=== PATIENT | male | born 1940 ===

== ENCOUNTER 2019-09-05 10:38 | Inpatient (IN) | payer MEDICARE ==
[2019-09-05] MEDS ORDERED: oxyCODONE/Acetamin 5/325 MG* TAB PO PRN (14:48)
[2019-09-05] MEDS ORDERED: Morphine INJ* 2 MG/ML 1 ML SYRINGE (TWO MG - NEW SYRINGE VERSION) IV PRN (14:48)
[2019-09-05] MEDS ORDERED: Vancomycin(*) 1,000 MG in NS 0.9% 250 ML* 250 ML IVPB SCH (15:00)
[2019-09-05] MEDS ORDERED: Vancomycin per Pharmacy* NOTE FOLLOW UP SCH (15:00)
[2019-09-05] MEDS ORDERED: Zosyn per Pharmacy* NOTE FOLLOW UP SCH (15:00)
[2019-09-05 15:41] LABS: Hematocrit 32 % (42-52); Hemoglobin 11.3 g/dL (14.0-18.0); Mean Corpuscular HGB Conc 35 g/dL (31-36); Mean Corpuscular Hemoglobin 34 pg (27-31); Mean Corpuscular Volume 97 fL (80-94); Mean Platelet Volume 8.3 fL (7.4-10.4); Platelet Count 145 10^3/uL (150-450); Red Blood Count 3.31 10^6 /uL (4.18-5.48); Red Cell Distribution Width 15 % (10-15)
[2019-09-05 15:58] LABS: ABS Lymphocytes 0.2 10^3/ul (1.0-4.8); ABS Monocytes 0.5 10^3/ul (0-0.8); ABS Neutrophils 12.2 10^3/ul (1.5-7.7); Eosinophil % 0.1 %; Lymphocyte % 1.6 %
[2019-09-05] MEDS ORDERED: Piperacillin/Tazobac ADVAN(*) 3.375 GM in NS 0.9% 100 ML* 100 ML IVPB ONE (16:00)
--- NOTE | 2019-09-05 16:06 | CONSULT ---
<Gino Cohen - Last Filed: 09/05/19 15:46> Consult Consult: Patient Name: Niraj Hwang : 1940 Provider: Dr. Braden Chief Complaint: Right leg HPI: The pt is a 78 y/o male who presents today as a transfer from [facility]. The pt states that about 2 weeks ago he developed a cut in the medial aspect of his distal lower leg. He states that on Sunday he started to develop severe pain the lower leg and calf. He had fevers and chills that night. He went to the hospital on Sunday morning and was admitted. He had a CT done on 09/03/2019 which showed no abnormal fluid collection. He did have blood cultures which showed strep pyogenes. He has been on chrnoic steroids x 2 years but had stopped about a week ago. He admits to having severe pain with movement. He is unable to ambulate on the leg at this time due to pain. He did have fevers and chills. PMH: 1. HTN 2. PMR 3. Hx of prostate cancer Allergies Allergy/AdvReac Type Severity Reaction Status Date / Time No Known Allergies Allergy Verified 09/05/19 15:11 Acetaminophen (Tylenol Tab*) 650 mg PO Q4H PRN PRN Reason: PAIN-MILD/TEMP >/= 100.4 Heparin Sodium (Porcine) (Heparin Vial(*)) 5,000 units SUBCUT Q8HR WAGNER Piperacillin Sod/Tazobactam (Sod 3.375 gm/ Sodium Chloride) 100 mls @ 200 mls/ hr IVPB ONCE ONE Stop: 09/05/19 16:29 Vancomycin HCl 500 mg/ Sodium (Chloride) 250 mls @ 166.667 mls/hr IVPB ONCE ONE Stop: 09/05/19 22:29 Vancomycin HCl 1,000 mg/ (Sodium Chloride) 250 mls @ 166.667 mls/hr IV Q12H WAGNER Magnesium Oxide (Magox 400 Tab*) 800 mg PO DAILY WAGNER Metoprolol Succinate (Toprol Xl Tab*) 25 mg PO BID WAGNER Morphine Sulfate (Morphine Inj (Syringe))*) 2 mg IV Q4H PRN PRN Reason: PAIN - SEVERE Oxycodone/Acetaminophen (Percocet 5/325 Tab*) 1 tab PO Q4H PRN PRN Reason: PAIN - MODERATE Pharmacy Consult (Vancomycin Per Pharmacy*) 1 note FOLLOW UP .VANC PER PHARMACY [facility]; Protocol Pharmacy Consult (Zosyn Per Pharmacy*) 1 note FOLLOW UP .ZOSYN PER PHARMACY [facility] Pharmacy Profile Note (Vancomycin Trough Check) 1 note FOLLOW UP 829 ONE Stop: 09/07/19 08:31 PSH: Right total knee arthroplsty Left total knee arthroplasty Left shoulder RCR Prostate removal. SOCIAL HISTORY: Lives with . Works as a contractor. He admits to drinking 3 , 12 oz beers per night. Denies smoking or illicit drug use. FAMILY: Non contributory ROS: General: Admits to fevers, chills. Denies night sweats. No known anesthesia problems. HEENT: denies BRIDGES, lightheadedness or syncopal episodes Cardiothoracic: Denies chest pain, heart palpitations Pulmonary: Denies SOB with exertion, chronic cough, COPD or asthma GI: Admits to nausea. denies V/D/C or GERD : Negative for nocturia, urinary frequency, urinary urgency Musculoskeletal: negative for chronic or intermittent back pain or fractures Neuro: Denies paresthesias, numbness PHYSICAL EXAM: Vital Signs Temp 98 F 09/05/19 14:06 Pulse 93 09/05/19 14:06 Resp 18 09/05/19 14:46 BP 147/80 09/05/19 14:06 Pulse Ox 95 09/05/19 14:06 Intake & Output 09/04/19 09/05/19 09/05/19 18:59 06:59 18:59 Intake Total 0 Output Total 0 Balance 0 Weight 194 lb Intake: Oral 0 Output: Urine 0 Other: # Bowel Movements 0 General: Alert & oriented, year old in no acute distress. Appropriate mood and affect HEENT: Normocephalic, atraumatic, hearing and vision grossly intact Cardio: regular rate and rhythm, S1 S2, no murmurs appreciated, no edema Pulmonary: Lungs clear to auscultation bilaterally, no wheezes, rales or rhonchi Musculoskeletal/Neurologic: Inspection of the RLE reveals severe raised erythema present with purple bullae near the ankle and mid calf. The pt has erythema that is present medial, posterior and extending laterally. The erythema also extends to just below the knee and down into the ankle. There is a small pair of wounds present on the medial distal calf that have serous drainage present. He has severe TTP of the calf medial, lateral and posterior. He jumps in the bed to slight palpation. he cam move his ankle and knee without pain. There is a 2+ DP pulse present. IMPRESSION: Severe cellulitis of the right lower extremity PLAN: STAT MRI of the right calf and ankle to evaluate further Blood cultures obtained Dr. Braden to assess once returned from the MRI NPO at this time Hospitalists starting IV abx at this point <Kev Braden - Last Filed: 09/05/19 19:02> Consult Consult: S: Abrasion x 3 weeks on right lower leg anteriorly treated with Neosporin. Developed severe pain on the evening of 09/02/19. Admitted to [place] 09/03/19. Bacteremic with Strep Pyogenes with first blood cultures. Started on Clinda. Subsequent blood cultures were negative. Initially lactate was elevated and hypotensive such that he was diagnosed as septic and required bolus of IVF. His pain improved from until today, Sunday. Blood cultures negative. But the swelling and erythema in the right lower leg increased which caused concern. Abx were changed from Clindamycin to Vancomycin and Zosyn. Initially , medical team at [place] was concerned about compartment syndrome. He was seen briefly by Dr. Guadalupe at [place]. Transfer to [facility] today was performed, admitted to Hospitalist. History bilateral TKAs, chornic prednisone, spinal stenosis, PMR. O: Non-toxic appearing LLE: - No clear pain with PROM/AROM knee. Pain with repositioning lower leg and with palpation lower leg. - Swelling, erythema lower leg. Incipient bullae posteriorly. Anteriorly, 2/ 3 from proximal to distal there are 2 skin openings with some serous drainage. - No pain with AROM/PROM toes. Mild pain with AROM/PROM ankle. - Sensation fully intact foot. DP pulse intact but weak to touch. Selected Entries 09/05/19 14:06 Temperature 98 F Pulse Rate 93 Respiratory 20 Rate Blood Pressure 147/80 (mmHg) O2 Sat by Pulse 95 Oximetry Laboratory Tests 09/05/19 09/05/19 15:23 15:23 WBC 13.0 H Neut % (Auto) 94.2 ESR Pending C-Reactive Protein 367.03 H - CT at [place] showed no air lower leg, no clear fluid collection - MRI at [facility] today of lower leg and ankle show no fluid collection, no air. There is much cellulitis of ankle and lower leg and some myositis in the lower leg. A: 1. Right lower leg severe cellulitis, bullae, myositis with Strep Epi 2. No compartment syndrome by exam. 3. Formerly septic and bacteremic on 09/03/19, though not currently. 4. No evidence of necrotizing fasciitis (no advancing proximal of the affected area, no air on imaging, non-toxic appearing, afebrile) P: 1. Continue broad spectrum abx (Vanc Zosyn) 2. Non-adherent dressing followed by Kb LENTZ 3. Xray lower leg to evaluate for air now 4. Can eat now. NPO after midnight. No clear indication for surgery at this time. 5. Ortho will follow exam and serial inflammatory labs. 6. ID consult will be performed on 09/08/19. Agree with repeat blood cultures.
[2019-09-05 16:10] LABS: BUN/Creatinine Ratio 21.5 (8-20); Calcium 7.8 mg/dL (8.6-10.3); EGFR African American 114.5 (>60); EGFR Non-African American 94.6 (>60); Potassium 3.6 mmol/L (3.5-5.0)
--- NOTE | 2019-09-05 16:34 | HP ---
CC: Dr. Kev Sheth; Dr. Guadalupe; Dr. Younger * HISTORY AND PHYSICAL: DATE OF ADMISSION: 09/05/19 Date of admission to our facility was 09/05/19, and on the same day, the patient was transferred to our hospital from [place] [facility]. PRIMARY CARE PROVIDER: Dr. Kev Sheth. CHIEF COMPLAINT: Right leg edema, possibility of abscess, possibility of compartment syndrome. HISTORY OF PRESENT ILLNESS: Niraj Davis is a 78-year-old male with history of polymyalgia rheumatica for which he was on chronic prednisone, which he just stopped a week ago, who noted right leg laceration which was small and he was treating it with Neosporin for approximately 4 days. He stated that he does not remember when he got the laceration, but he started treating it approximately 4 days prior to his arrival to [facility]. When he arrived to [facility] on 09/03/19, he had fever, chills, hypotension that resolved after intravenous fluid boluses. He also had an episode of nausea and vomiting x1. He was noted to have yellow drainage from the right leg wound. He was started on clindamycin intravenously. Ever since the admission, he continued to complain of severe pain. He stated that whenever he tries to move his leg has shooting pain, feels like a gunshot to his leg. He also had elevated lactic acid of 3.5 at admission that resolved. During his hospitalization at [facility], he was noted to have Strep pyogenes group A bacteremia and his antibiotics were broadened to vancomycin and Zosyn on the day of admission to our facility and started at [place]. He was noted to have marked leg edema on 09/05/19. The day before, he had Dopplers of right lower extremity which showed "superficial vein thrombosis." Unfortunately, it was not mentioned which vein. He also had a CT of the right leg that showed cellulitis and edema, but no other abnormalities. The provider at [facility] was concerned for possibility of compartment syndrome. Dr. Guadalupe from Orthopedic Surgery curbsided the patient and evaluated him briefly at [place]. It was noted that the patient likely does not have compartment syndrome, but he needs to be transferred and evaluated for an abscess. I discussed the case with Dr. Younger. It is going to be either Dr. Younger or Dr. Guadalupe who will see the patient today in orthopedic service consult. The patient is also going to undergo a CT of the right lower extremity and he is being admitted to our hospital. PAST MEDICAL HISTORY: 1. History of polymyalgia rheumatica, on steroids that were stopped by the patient alone a week prior to the patient's admission. The patient stated that he decided to do it since he noted that long-term steroids have a lot of side effects. He had been taking steroids for approximately 2 years up until that point. 2. History of spinal stenosis. PAST SURGICAL HISTORY: 1. History of left rotator cuff repair. 2. Bilateral total knee replacement surgeries in the past. 3. Prostatectomy for prostate cancer and vasectomy in the past. 4. History of left inguinal hernia repair. MEDICATIONS AT HOME: Include: 1. Toprol-XL 25 mg twice a day. 2. Prednisone 20 mg daily that the patient stopped a week ago. ALLERGIES: No known drug allergies. FAMILY HISTORY: All brothers with prostate cancer. Mother with diabetes. SOCIAL HISTORY: The patient works in construction. He denies any tobacco, alcohol, or drug use. His surrogate decision maker is his , Kiya. REVIEW OF SYSTEMS: Please see history of present illness. All the remaining 12 systems were reviewed with the patient and were otherwise negative. PHYSICAL EXAMINATION GENERAL: The patient is a very pleasant 78-year-old male who is in no acute distress. The patient is alert and oriented x3. VITAL SIGNS: Blood pressure of 147/80, heart rate of 93 and regular, respiratory rate 20, oxygen saturation 95% on room air, temperature 98.0. HEENT: Head: Atraumatic, normocephalic. Eyes: Pupils are equal, reactive to light and accommodation. Oropharynx is clear. Mucosa moist. NECK: Supple. No JVD. No bruits bilaterally. RESPIRATORY: Clear to auscultation bilaterally. CARDIOVASCULAR: Regular rate and rhythm. No murmur. ABDOMEN: Soft, nontender. Bowel sounds are present in all 4 quadrants. EXTREMITIES: There is entire right leg edema of +2 pitting. The area most edematous is below the knee and includes the foot. There are a couple of small lacerations noted on the mid leg peace draining serous fluid. The edema/ erythema is pitting with blistering. Two blood blisters noted, one overlying the left medial malleolus approximately 2 cm in diameter and another blood blister noted on the left calf of approximately 4 cm in diameter. There is an area of very tense edema overlying the calf. The erythema is surrounding the entire lower leg from the level of the ankle to the level of the knee more so posteriorly. There is no fluctuation, no palpable abscesses. DIAGNOSTIC STUDIES/LAB DATA: Laboratory data today obtained at [place] included sodium of 139, potassium 3.3, chloride 106, carbon dioxide 24, BUN 20, creatinine 0.9, magnesium of 1.5. White blood cell count of 10.3, hemoglobin of 10.2, hematocrit of 31.2, platelets of 148. There were 9% bands noted. Blood cultures obtained at admission showed pansensitive Strep pyogenes and it was sensitive to chloramphenicol, ampicillin, penicillin, cefepime, cefpodoxime , ceftriaxone, levofloxacin, azithromycin, clindamycin, erythromycin, tetracycline, and vancomycin. CT of the right lower extremity obtained on 09/04/19, impression: "Limited unenhanced CT evaluation shows diffuse subcutaneous edema suggestive of cellulitis without definite abnormal fluid collection or abscess. Right total knee arthroplasty without acute displaced fracture or dislocation or evidence of osteomyelitis." ASSESSMENT AND PLAN: 1. A 78-year-old patient with history of polymyalgia rheumatica, who was on steroids a week prior to his presentation to [place] [facility] with severe sepsis, hypotension, elevation of lactic acid, and Streptococcus pyogenes bacteremia. The patient at this point is going to be continued on vancomycin and Zosyn. At this point, his pain is significant and I am worried about possibility of fasciitis. I am going to obtain a CT with contrast to rule this out and orthopedic services are going to evaluate the patient in regards of that. At this point, the patient is going to be continued with broad-spectrum antibiotics. Also, we will obtain repeat blood cultures. 2. The patient has history of hypertension and his Toprol-XL twice a day is going to be continued as at home. 3. For DVT prophylaxis, the patient is going to be placed on heparin subcutaneously. 4. History of polymyalgia rheumatica. The patient stopped his prednisone that he had been on for nearly 2 years by himself approximately a week prior to admission. At this point, there is no hemodynamic instability to indicate need of stress-dose steroids. Due the patient stopping the medication by himself, I am going to continue to hold them for the time being. 5. The patient's code status is full. His surrogate is his . TIME SPENT: Approximately 62 minutes was spent on admission of this patient, more than half that time was spent [id number] with the patient during the interview and physical exam. [id number]/[id number] #: [id number] ISMA
[2019-09-05 17:25] LABS: BUN/Creatinine Ratio 20.5 (8-20); Calcium 7.6 mg/dL (8.6-10.3); EGFR African American 116.2 (>60); Potassium 3.6 mmol/L (3.5-5.0)
[2019-09-05] MEDS: Magnesium Oxide TAB* 400 MG PO SCH (17:44)
[2019-09-05 18:25] LABS: C Reactive Protein 367.03 mg/L (<8.01)
[2019-09-05 20:19] LABS: Erythrocyte Sed Rate 91 mm/Hr (0-19)
[2019-09-05] MEDS ORDERED: Vancomycin(*) 500 MG in NS 0.9% 250 ML* 250 ML IVPB ONE (21:00)
[2019-09-05] MEDS: Metoprolol Succinate XL TAB* 25 MG PO SCH (21:20)
[2019-09-05] MEDS: Heparin VIAL(*) 5000 UNITS/ML VIAL (FIVE THOUSAND) SUBCUT SCH (21:51)
[2019-09-05] MEDS ORDERED: ZOSYN 3.375 GM Q8H per EXTENDED INFUSION IVPB SCH ×2 (22:00)
[2019-09-06] MEDS: Heparin VIAL(*) 5000 UNITS/ML VIAL (FIVE THOUSAND) SUBCUT SCH ×3 (05:56→22:19)
[2019-09-06 07:08] LABS: Hematocrit 31 % (42-52); Hemoglobin 10.5 g/dL (14.0-18.0); Mean Corpuscular HGB Conc 34 g/dL (31-36); Mean Corpuscular Hemoglobin 33 pg (27-31); Mean Corpuscular Volume 97 fL (80-94); Mean Platelet Volume 8.3 fL (7.4-10.4); Platelet Count 142 10^3/uL (150-450); Red Blood Count 3.15 10^6 /uL (4.18-5.48); Red Cell Distribution Width 15 % (10-15); White Blood Count 13.6 10^3/uL (3.5-10.8)
[2019-09-06 07:24] LABS: EGFR African American 111.2 (>60); EGFR Non-African American 91.9 (>60); Magnesium 1.8 mg/dL (1.9-2.7)
[2019-09-06 07:42] LABS: ABS Lymphocytes 0.3 10^3/ul (1.0-4.8); ABS Monocytes 0.6 10^3/ul (0-0.8); ABS Neutrophils 12.6 10^3/ul (1.5-7.7); Lymphocyte % 2.6 %
[2019-09-06] MEDS: Vancomycin(*) 1,000 MG in NS 0.9% 250 ML* 250 ML IV SCH ×2 (09:20→23:32)
[2019-09-06] MEDS: Magnesium Oxide TAB* 400 MG PO SCH (09:30)
[2019-09-06] MEDS: Metoprolol Succinate XL TAB* 25 MG PO SCH ×2 (09:30→21:05)
[2019-09-06 09:34] LABS: C Reactive Protein 299.84 mg/L (<8.01)
--- NOTE | 2019-09-06 10:29 | PN ---
Progress Note - Progress Note Date of Service: 09/06/19 SOAP: Subjective: Pain is unchanged from yesterday. Pain with palpation lower leg or movement. Comfortable at rest. Not worse or better pain since yesterday. Patient thought the pain had improved from to Sunday, but the lower leg became very swollen from to Sunday. Patient was made NPO after midnight yesterday just in case. Objective: NAD Non-toxic appearing, comfortable-looking RLE: - No groin or popliteal tenderness to palpation, palpable lymphadenopathy - No proximal migration whatsoever of area of erythema, no erythematous streaking - No erythema of skin close to TKA surgery skin scar - Skin erythema of lower leg is a darker red and the border of the erythema is better demarcated between the erythema and the surrounding normal skin. - New blister on the posterior lower leg 2/[address] from knee to ankle - Some serous drainage with spotting on dressings from the 2 skin opening anterior - NVID with sensation and motor fully intact and DP pulse palpable - No pain whatsoever with vigorous passive or active ROM ankle Microbiology 09/03/19 14:00 Leg Right Gram Stain - Final 09/03/19 14:00 Leg Right Wound Culture - Final Strep Pyogenes (Grp A) 09/03/19 13:51 Blood Venous Aerobic Blood Culture - Final 09/03/19 13:51 Blood Venous Anaerobic Blood Culture - Final Strep Pyogenes (Grp A) 09/03/19 13:51 Blood Venous Aerobic Blood Culture - Final 09/03/19 13:51 Blood Venous Strep Pyogenes (Grp A) 09/03/19 13:51 Blood Venous Anaerobic Blood Culture - Preliminary No Growth Day 2 Selected Entries 09/05/19 09/05/19 09/06/19 19:32 23:39 03:33 Temperature 99.7 F 98.2 F 98.1 F Pulse Rate Respiratory Rate Blood Pressure (mmHg) O2 Sat by Pulse Oximetry 09/06/19 07:36 Temperature 99.3 F Pulse Rate 74 Respiratory 16 Rate Blood Pressure 111/57 (mmHg) O2 Sat by Pulse 96 Oximetry Laboratory Tests 09/05/19 09/05/19 09/06/19 15:23 15:23 06:20 WBC 13.0 H 13.6 H Neut % (Auto) 94.2 92.7 C-Reactive Protein 367.03 H 09/06/19 06:20 WBC Neut % (Auto) C-Reactive Protein 299.84 H x-ray right lower leg: no subcutaneous or fascial air appreciated Assessment: Right lower leg cellulitis, myositis, severe with barcenas-sensitive Strep Pyogenes by prior blood and wound cultures No sign of necrotizing fasciitis History bilateral total knee arthroplasty Plan: - Patient may eat food now. No plans for surgery today or at any point as it stands now. - Continue broad spectrum IV antibiotics, Vanc/Zosyn given the severity of the infection despite its pansensitivity - Daily CRP, CBC, chemistries & wound check - CRP dropped 367 to 299, which is encouraging. Patient still non-toxic appearing, stable vitals, no proximal advance of infection by exam. Pain not worse. No fluid collection by MRI. No air by xray yesterday or CT previously. No indication therefore of necrotizing fasciitis or indication that I&D is required. - By LRINEC Scoring system, patient scores a 6 by virtue of elevated CRP and slightly depressed Hb. - ID service to see the patient on 09/08/19. Defer to them on changing antibiotics to penicillin G or any other regiment. - I obtained new wound cultures this morning and will order new blood cultures this morning. - Tylenol prn for low-grade temperature - I spoke with family
[2019-09-06] MEDS: ZOSYN 3.375 GM Q8H per EXTENDED INFUSION IVPB SCH ×4 (11:44→18:08)
--- NOTE | 2019-09-06 16:39 | PN ---
Subjective Date of Service: 09/06/19 Interval History: No acute events overnight. Tmax 99.7. Pain is improved today compared to yesterday, was able to walk back from bathroom unassisted. CRP down to 299 from 367. Some loose stool/fecal incontinence. did not sleep at all last night as he was so concerned about the look of the leg that he feared it would have to be amputated. Has since caught up with naps. Saw a Learning Disabled Teacher remotely at [place]. Objective Active Medications: Acetaminophen (Tylenol Tab*) 650 mg PO Q4H PRN PRN Reason: PAIN-MILD/TEMP >/= 100.4 Heparin Sodium (Porcine) (Heparin Vial(*)) 5,000 units SUBCUT Q8HR [facility] Last Admin: 09/06/19 14:18 Dose: 5,000 units Vancomycin HCl 1,000 mg/ (Sodium Chloride) 250 mls @ 166.667 mls/hr IV Q12H [facility] Last Admin: 09/06/19 09:20 Dose: 166.667 mls/hr Piperacillin Sod/Tazobactam (Sod 3.375 gm/ Sodium Chloride) 100 mls @ 25 mls/ hr IVPB Q8H [facility] Last Admin: 09/06/19 11:44 Dose: 25 mls/hr Magnesium Oxide (Magox 400 Tab*) 800 mg PO DAILY [facility] Last Admin: 09/06/19 09:30 Dose: 800 mg Metoprolol Succinate (Toprol Xl Tab*) 25 mg PO BID [facility] Last Admin: 09/06/19 09:30 Dose: 25 mg Morphine Sulfate (Morphine Inj (Syringe))*) 2 mg IV Q4H PRN PRN Reason: PAIN - SEVERE Oxycodone/Acetaminophen (Percocet 5/325 Tab*) 1 tab PO Q4H PRN PRN Reason: PAIN - MODERATE Pharmacy Consult (Vancomycin Per Pharmacy*) 1 note FOLLOW UP .VANC PER PHARMACY [facility]; Protocol Pharmacy Consult (Zosyn Per Pharmacy*) 1 note FOLLOW UP .ZOSYN PER PHARMACY [facility] Pharmacy Profile Note (Vancomycin Trough Check) 1 note FOLLOW UP 829 ONE Stop: 09/07/19 08:31 Vital Signs - 8 hr 09/06/19 09/06/19 11:27 15:22 Temperature 99.3 F 98.8 F Pulse Rate 69 68 Respiratory 16 16 Rate Blood Pressure 128/62 128/67 (mmHg) O2 Sat by Pulse 97 96 Oximetry Oxygen Devices in Use Now: None Appearance: NAD, Eyes: No Scleral Icterus Ears/Nose/Mouth/Throat: NL Teeth, Lips, Gums Neck: NL Appearance and Movements; NL JVP Respiratory: Symmetrical Chest Expansion and Respiratory Effort, Clear to Auscultation Cardiovascular: NL Sounds; No Murmurs; No JVD, RRR Abdominal: NL Sounds; No Tenderness; No Distention, No Hepatosplenomegaly Extremities: - - right ankle to below knee with deep erythema, two areas of ulceration/oozing and a blister on posterior aspect. pedal edema sensation intact. Skin: - - rash as above Neurological: Alert and Oriented x 3 Nutrition: Taking PO's Result Diagrams: 09/06/19 06:20 09/06/19 06:20 Additional Lab and Data: Laboratory Results - last 24 hr 09/05/19 09/05/19 09/05/19 15:23 15:23 15:23 WBC 13.0 H RBC 3.31 L Hgb 11.3 L Hct 32 L MCV 97 H MCH 34 H MCHC 35 RDW 15 Plt Count 145 L MPV 8.3 Neut % (Auto) 94.2 Lymph % (Auto) 1.6 [place] % (Auto) 4.0 Eos % (Auto) 0.1 Baso % (Auto) 0.1 Absolute Neuts (auto) 12.2 H Absolute Lymphs (auto) 0.2 L Absolute Monos (auto) 0.5 Absolute Eos (auto) 0.0 Absolute Basos (auto) 0.0 Absolute Nucleated RBC 0.0 Nucleated RBC % 0.0 ESR 91 H Sodium 137 137 Potassium 3.6 3.6 Chloride 106 106 Carbon Dioxide 26 25 Anion Gap 5 6 BUN 16 17 Creatinine 0.78 0.79 Est GFR ( Amer) 116.2 114.5 Est GFR (Non-Af Amer) 96.0 94.6 BUN/Creatinine Ratio 20.5 H 21.5 H Glucose 110 H 112 H Calcium 7.6 L 7.8 L Magnesium C-Reactive Protein 367.03 H 09/06/19 09/06/19 06:20 06:20 WBC 13.6 H RBC 3.15 L Hgb 10.5 L Hct 31 L MCV 97 H MCH 33 H MCHC 34 RDW 15 Plt Count 142 L MPV 8.3 Neut % (Auto) 92.7 Lymph % (Auto) 2.6 [place] % (Auto) 4.6 Eos % (Auto) 0.0 Baso % (Auto) 0.1 Absolute Neuts (auto) 12.6 H Absolute Lymphs (auto) 0.3 L Absolute Monos (auto) 0.6 Absolute Eos (auto) 0.0 Absolute Basos (auto) 0.0 Absolute Nucleated RBC 0.0 Nucleated RBC % 0.0 ESR Sodium Potassium Chloride Carbon Dioxide Anion Gap BUN 15 Creatinine 0.81 Est GFR ( Amer) 111.2 Est GFR (Non-Af Amer) 91.9 BUN/Creatinine Ratio Glucose Calcium Magnesium 1.8 L C-Reactive Protein 299.84 H Microbiology and Other Data: Microbiology 09/05/19 15:22 Blood Venous Aerobic Blood Culture - Preliminary No Growth Day 1 09/05/19 15:22 Blood Venous Anaerobic Blood Culture - Preliminary No Growth Day 1 09/05/19 15:22 Blood Venous Aerobic Blood Culture - Preliminary No Growth Day 1 09/05/19 15:22 Blood Venous Anaerobic Blood Culture - Preliminary No Growth Day 1 09/06/19 10:42 Leg Right Skin and Soft Tissue MRSA/MSSA (PCR - Final Mrsa Negative S.aureus Negative 09/06/19 10:42 Leg Right Gram Stain - Final 09/06/19 10:42 Leg Right Gram Stain - Final Assess/Plan/Problems-Billing Assessment: 78 yo male PMH PMR on chronic prednisone p/w group a strep cellulitis of the right lower extremity causing sepsis and bacteremia. - Patient Problems (1) Streptococcal cellulitis Current Visit: Yes Status: Acute Code(s): L03.90 - CELLULITIS, UNSPECIFIED; B95.5 - UNSP STREPTOCOCCUS THE CAUSE OF DISEASES CLASSD [facility] SNOMED Code( s): 460921109 Comment: Patient was switched from clindamycin (got 600mg once then 300mg q8 ) to vancomycin + zosyn at [place] when the leg got more painful and sweeling. ID consult is pending but given consisten culture data (Blood cultures, wound cultures) I would favor switching to PCN G 4million U q4+ clindamycin 900 q8 IV (for the anti endotoxin effects). Appreciate Ortho recs. Monitoring for fascitis given significant pain but no air on imaging or crepitus with improving pain levels. (2) Sepsis Current Visit: Yes Status: Acute Comment: leukocytosis, tachycardia to 108 at [facility], bandemia 8% at [place], source bacteremia/cellulitis (Strep Group A). improving (3) Streptococcal bacteremia Current Visit: Yes Status: Acute Code(s): R78.81 - BACTEREMIA; B95.5 - UNSP STREPTOCOCCUS THE CAUSE OF DISEASES CLASSD [facility] SNOMED Code(s): 955731944796 Comment: Repeat BCx from 09/05 is NGTD. f/u. Would need ECHO if persistently positive. (4) PMR (polymyalgia rheumatica) Current Visit: Yes Status: Acute Code(s): M35.3 - POLYMYALGIA RHEUMATICA SNOMED Code(s): 85254977 Comment: He recently stopped long standing predinsone (without telling Dr. Sheth, his father in law) but plans to return to it. (5) Hypertension Current Visit: Yes Status: Acute Code(s): I10 - ESSENTIAL (PRIMARY) HYPERTENSION SNOMED Code(s): 93177834 Comment: continue metoprolol Status and Disposition: medicine inpatient. PT ordered.
[2019-09-07] MEDS: ZOSYN 3.375 GM Q8H per EXTENDED INFUSION IVPB SCH ×4 (01:36→10:47)
[2019-09-07 05:11] LABS: ABS Lymphocytes 0.5 10^3/ul (1.0-4.8); ABS Monocytes 0.9 10^3/ul (0-0.8); ABS Neutrophils 7.4 10^3/ul (1.5-7.7); Eosinophil % 0.1 %; Hematocrit 30 % (42-52); Hemoglobin 10.4 g/dL (14.0-18.0); Lymphocyte % 5.9 %; Mean Corpuscular HGB Conc 35 g/dL (31-36); Mean Corpuscular Hemoglobin 34 pg (27-31); Mean Corpuscular Volume 97 fL (80-94); Mean Platelet Volume 8.2 fL (7.4-10.4); Platelet Count 153 10^3/uL (150-450); Red Blood Count 3.08 10^6 /uL (4.18-5.48); Red Cell Distribution Width 15 % (10-15); White Blood Count 8.8 10^3/uL (3.5-10.8)
[2019-09-07 05:29] LABS: BUN/Creatinine Ratio 17.3 (8-20); C Reactive Protein 180.34 mg/L (<8.01); Calcium 7.4 mg/dL (8.6-10.3); EGFR African American 111.2 (>60); EGFR Non-African American 91.9 (>60)
[2019-09-07] MEDS: Heparin VIAL(*) 5000 UNITS/ML VIAL (FIVE THOUSAND) SUBCUT SCH ×3 (05:59→21:56)
[2019-09-07] MEDS ORDERED: Vancomycin Trough Check NOTE FOLLOW UP ONE (08:30)
[2019-09-07 08:53] LABS: Magnesium 1.8 mg/dL (1.9-2.7)
[2019-09-07 09:18] LABS: Vancomycin Trough 7.2 mcg/mL
[2019-09-07] MEDS: Vancomycin(*) 1,000 MG in NS 0.9% 250 ML* 250 ML IV SCH (09:38)
[2019-09-07] MEDS: Metoprolol Succinate XL TAB* 25 MG PO SCH ×2 (09:38→20:23)
[2019-09-07] MEDS: Magnesium Oxide TAB* 400 MG PO SCH (09:38)
--- NOTE | 2019-09-07 09:48 | PN ---
Progress Note - Progress Note Date of Service: 09/07/19 SOAP: Subjective: At first, he says pain is the same with weight bearing or palpation. However, after he tolerated the dressing change better than before, he acknowledged decreased pain, better sleep, better mobility RLE. Hospitalist changed abx yesterday from Vanc plus Zosyn to PCN G plus Clindamycin. Objective: RLE: - Dressing was saturated with serous drainage from blisters. - No proximal spread skin erythema. No TTP popliteal or groin areas. - More blistering skin. - No pain PROM/AROM ankle, toes. - NVID. DP intact. Blood cxs from 09/05/19 still negative. Microbiology 09/06/19 10:42 Leg Right Skin and Soft Tissue MRSA/MSSA (PCR - Final 09/06/19 10:42 Leg Right Gram Stain - Final Mrsa Negative S.aureus Negative 09/06/19 10:42 Leg Right Gram Stain - Final 09/05/19 15:22 Blood Venous Aerobic Blood Culture - Preliminary 09/05/19 15:22 Blood Venous Anaerobic Blood Culture - Preliminary No Growth Day 1 No Growth Day 1 09/05/19 15:22 Blood Venous Aerobic Blood Culture - Preliminary 09/05/19 15:22 Blood Venous Anaerobic Blood Culture - Preliminary No Growth Day 1 No Growth Day 1 Selected Entries 09/06/19 09/06/19 09/06/19 07:36 11:27 15:22 Temperature 99.3 F 99.3 F 98.8 F Pulse Rate Respiratory Rate Blood Pressure (mmHg) O2 Sat by Pulse Oximetry 09/06/19 09/06/19 09/07/19 20:15 23:25 03:12 Temperature 98.6 F 99.4 F 98.9 F Pulse Rate Respiratory Rate Blood Pressure (mmHg) O2 Sat by Pulse Oximetry 09/07/19 07:36 Temperature 98.6 F Pulse Rate 64 Respiratory 16 Rate Blood Pressure 133/72 (mmHg) O2 Sat by Pulse 97 Oximetry Laboratory Tests 09/05/19 09/05/19 09/06/19 15:23 15:23 06:20 WBC 13.0 H 13.6 H Neut % (Auto) 94.2 92.7 C-Reactive Protein 367.03 H 09/06/19 09/07/19 09/07/19 06:20 04:54 04:54 WBC 8.8 Neut % (Auto) 83.8 C-Reactive Protein 299.84 H 180.34 H Assessment: HD 3 Cellulitis, minimal myositis with Strep Pyogenes Formerly septic, bacteremic Plan: - Continue IV abx - DSD change daily. DSD will be important to prevent superinfection as his blisters pop. - The decrease in CRP, WBC, and neutrophil %, along with some minimal improvement in pain and mobility, demonstrates the efficacy of the IV antibiotics in treating this infection. Very encouraging. Still no surgical indication. - Continue daily CRP & wound checks. - ID service to see the patient Sunday. - I suspect that the patient will need a long course of IV abx given the seriousness of his infection and the close proximity of his right total knee arthroplasty. The patient and I discussed a PICC line this morning. - I am going to add a creatinine kinase to labs just to quantify/qualify level of muscle involvement
[2019-09-07] MEDS ORDERED: Magnesium Sulfate 2 GM IV* 2 GM/50 ML BAG IVPB ONE (10:02)
[2019-09-07] MEDS ORDERED: Potassium Chloride* LIQUID 20 MEQ/15 ML UDC PO ONE ×2 (10:03→16:00)
[2019-09-07] MEDS: TAZOBACTAM IVPB SCH ×6 (11:42→23:11)
[2019-09-07] MEDS: PIPERACILLIN IVPB SCH ×6 (11:42→23:11)
[2019-09-07] MEDS: Acetaminophen TAB* 325 MG PO PRN ×2 (13:53→20:23)
[2019-09-07] MEDS: Vancomycin(*) 750 MG in NS 0.9% 250 ML* 250 ML IVPB SCH ×2 (16:10→23:51)
--- NOTE | 2019-09-07 16:22 | PN ---
Subjective Date of Service: 09/07/19 Interval History: No acute events overnight. Tmax 99.0 Report of more weeping blisters on posterior aspect of calf. WBC down to 8.8 from 13.6, CRP down to 180 from 299. Vanc 7.2 10/10 when standing with PT. Pain when leg dependent. At rest on flat surface pain is improving each day. Denies f/c/n/v/abdominal pain/chest pain. Poor appetite. Objective Active Medications: Acetaminophen (Tylenol Tab*) 650 mg PO Q4H PRN PRN Reason: PAIN-MILD/TEMP >/= 100.4 Last Admin: 09/07/19 13:53 Dose: 650 mg Heparin Sodium (Porcine) (Heparin Vial(*)) 5,000 units SUBCUT Q8HR [facility] Last Admin: 09/07/19 13:53 Dose: 5,000 units Vancomycin HCl 750 mg/ Sodium (Chloride) 250 mls @ 166.667 mls/hr IVPB Q8H [facility] Last Admin: 09/07/19 16:10 Dose: 166.667 mls/hr Piperacillin Sod/Tazobactam (Sod 3.375 gm/ Sodium Chloride) 100 mls @ 200 mls/ hr IVPB Q6H [facility] Last Admin: 09/07/19 11:42 Dose: 200 mls/hr Magnesium Oxide (Magox 400 Tab*) 800 mg PO DAILY [facility] Last Admin: 09/07/19 09:38 Dose: 800 mg Metoprolol Succinate (Toprol Xl Tab*) 25 mg PO BID [facility] Last Admin: 09/07/19 09:38 Dose: 25 mg Morphine Sulfate (Morphine Inj (Syringe))*) 2 mg IV Q4H PRN PRN Reason: PAIN - SEVERE Oxycodone/Acetaminophen (Percocet 5/325 Tab*) 1 tab PO Q4H PRN PRN Reason: PAIN - MODERATE Pharmacy Consult (Vancomycin Per Pharmacy*) 1 note FOLLOW UP .VANC PER PHARMACY [facility]; Protocol Pharmacy Consult (Zosyn Per Pharmacy*) 1 note FOLLOW UP .ZOSYN PER PHARMACY [facility] Pharmacy Profile Note (Vancomycin Trough Check) 1 note FOLLOW UP 0830 ONE Stop: 09/09/19 08:31 Vital Signs - 8 hr 09/07/19 09/07/19 11:16 15:38 Temperature 98.9 F 99.0 F Pulse Rate 67 67 Respiratory 16 18 Rate Blood Pressure 132/65 119/64 (mmHg) O2 Sat by Pulse 98 94 Oximetry Oxygen Devices in Use Now: None Appearance: NAD Ears/Nose/Mouth/Throat: NL Teeth, Lips, Gums Neck: NL Appearance and Movements; NL JVP Respiratory: Symmetrical Chest Expansion and Respiratory Effort Cardiovascular: NL Sounds; No Murmurs; No JVD Abdominal: NL Sounds; No Tenderness; No Distention Extremities: - - right leg wrapped in kerlix, no drainage. 2+ edema. Can Skin: - - as above. Neurological: Alert and Oriented x 3 Nutrition: Taking PO's Result Diagrams: 09/07/19 04:54 09/07/19 04:54 Additional Lab and Data: Laboratory Results - last 24 hr 09/07/19 09/07/19 09/07/19 04:54 04:54 08:24 WBC 8.8 RBC 3.08 L Hgb 10.4 L Hct 30 L MCV 97 H MCH 34 H MCHC 35 RDW 15 Plt Count 153 MPV 8.2 Neut % (Auto) 83.8 Lymph % (Auto) 5.9 [place] % (Auto) 10.0 Eos % (Auto) 0.1 Baso % (Auto) 0.2 Absolute Neuts (auto) 7.4 Absolute Lymphs (auto) 0.5 L Absolute Monos (auto) 0.9 H Absolute Eos (auto) 0.0 Absolute Basos (auto) 0.0 Absolute Nucleated RBC 0.0 Nucleated RBC % 0.0 Sodium 138 Potassium 3.0 L Chloride 107 Carbon Dioxide 26 Anion Gap 5 BUN 14 Creatinine 0.81 Est GFR ( Amer) 111.2 Est GFR (Non-Af Amer) 91.9 BUN/Creatinine Ratio 17.3 Glucose 136 H Calcium 7.4 L Magnesium 1.8 L Total Creatine Kinase 98 C-Reactive Protein 180.34 H Vancomycin Trough 7.2 Microbiology and Other Data: Microbiology 09/05/19 15:22 Blood Venous Aerobic Blood Culture - Preliminary No Growth Day 2 09/05/19 15:22 Blood Venous Anaerobic Blood Culture - Preliminary No Growth Day 2 09/05/19 15:22 Blood Venous Aerobic Blood Culture - Preliminary No Growth Day 2 09/05/19 15:22 Blood Venous Anaerobic Blood Culture - Preliminary No Growth Day 2 09/06/19 10:42 Leg Right Gram Stain - Final 09/06/19 10:42 Leg Right Wound Culture - Preliminary Normal Angelica 09/06/19 10:42 Leg Right Skin and Soft Tissue MRSA/MSSA (PCR - Final Mrsa Negative S.aureus Negative 09/06/19 10:42 Leg Right Gram Stain - Final 09/06/19 10:42 Leg Right Wound Culture - Preliminary Normal Angelica 09/06/19 13:28 Blood Venous Aerobic Blood Culture - Preliminary No Growth Day 1 09/06/19 13:28 Blood Venous Anaerobic Blood Culture - Preliminary No Growth Day 1 09/06/19 10:42 Wound - Right Leg Anaerobic Culture - Preliminary No Growth Day 1 09/06/19 10:42 Wound - Right Leg Anaerobic Culture - Preliminary Assess/Plan/Problems-Billing Assessment: 78 yo male PMH PMR on chronic prednisone p/w group a strep cellulitis of the right lower extremity causing sepsis and bacteremia. - Patient Problems (1) Streptococcal cellulitis Current Visit: Yes Status: Acute Code(s): L03.90 - CELLULITIS, UNSPECIFIED; B95.5 - UNSP STREPTOCOCCUS THE CAUSE OF DISEASES CLASSD [facility] SNOMED Code( s): 505019678 Comment: Patient was switched from clindamycin (got 600mg once then 300mg q8 ) to vancomycin + zosyn at [place] when the leg got more painful and swelling. ID consult is pending but given consistent culture data (Blood cultures, wound cultures) I would favor switching to PCN G 4million U q4+ clindamycin 900 q8 IV (for the anti endotoxin effects). However given improvement in WBC, CRP and pain on vanc, zosyn will hold off changes until ID can evaluate Appreciate Ortho recs. Monitoring for fascitis given significant pain but no air on imaging or crepitus with improving pain levels. CK wnl. (2) Sepsis Current Visit: Yes Status: Acute Comment: leukocytosis, tachycardia to 108 at [facility], bandemia 8% at [place], source bacteremia/cellulitis (Strep Group A). improving (3) Streptococcal bacteremia Current Visit: Yes Status: Acute Code(s): R78.81 - BACTEREMIA; B95.5 - UNSP STREPTOCOCCUS THE CAUSE OF DISEASES CLASSD [facility] SNOMED Code(s): 760790992235 Comment: Repeat BCx from 09/05 is NGTD x2 days and from 09/06 in NGTD x 1 day. Would need ECHO if turns positive. (4) PMR (polymyalgia rheumatica) Current Visit: Yes Status: Acute Code(s): M35.3 - POLYMYALGIA RHEUMATICA SNOMED Code(s): 26626452 Comment: He recently stopped long standing predinsone (without telling Dr. Sheth, his father in law) but plans to return to it. (5) Hypertension Current Visit: Yes Status: Acute Code(s): I10 - ESSENTIAL (PRIMARY) HYPERTENSION SNOMED Code(s): 83414147 Comment: SBP 110-130s continue metoprolol Status and Disposition: medicine inpatient. PT rec: continued skilled PT services. Will order PICC
[2019-09-07] MEDS ORDERED: Loperamide CAP* 2 MG PO PRN (17:39)
[2019-09-08] MEDS: PIPERACILLIN IVPB SCH ×2 (05:12)
[2019-09-08] MEDS: TAZOBACTAM IVPB SCH ×2 (05:12)
[2019-09-08 05:22] LABS: Hematocrit 32 % (42-52); Hemoglobin 11.2 g/dL (14.0-18.0); Mean Corpuscular HGB Conc 35 g/dL (31-36); Mean Corpuscular Hemoglobin 34 pg (27-31); Mean Corpuscular Volume 98 fL (80-94); Mean Platelet Volume 8.3 fL (7.4-10.4); Platelet Count 190 10^3/uL (150-450); Red Cell Distribution Width 15 % (10-15); White Blood Count 8.5 10^3/uL (3.5-10.8)
[2019-09-08 05:39] LABS: BUN/Creatinine Ratio 15.9 (8-20); C Reactive Protein 164.64 mg/L (<8.01); Calcium 7.7 mg/dL (8.6-10.3); EGFR African American 109.7 (>60); EGFR Non-African American 90.6 (>60); Potassium 3.9 mmol/L (3.5-5.0)
[2019-09-08 05:40] LABS: ABS Lymphocytes 0.5 10^3/ul (1.0-4.8); ABS Monocytes 0.7 10^3/ul (0-0.8); ABS Neutrophils 7.2 10^3/ul (1.5-7.7); Eosinophil % 0.2 %; Lymphocyte % 6.2 %
[2019-09-08] MEDS: Heparin VIAL(*) 5000 UNITS/ML VIAL (FIVE THOUSAND) SUBCUT SCH ×3 (05:52→22:07)
[2019-09-08] MEDS: Magnesium Oxide TAB* 400 MG PO SCH (08:47)
[2019-09-08] MEDS: Metoprolol Succinate XL TAB* 25 MG PO SCH ×2 (08:47→22:06)
[2019-09-08] MEDS: Vancomycin(*) 750 MG in NS 0.9% 250 ML* 250 ML IVPB SCH (08:54)
--- NOTE | 2019-09-08 09:55 | PN ---
Subjective Date of Service: 09/08/19 Interval History: no acute events overnight, afebrile tired. 8/10 pain if weight bearing. Much more extensive weeping blistering in posterior aspect compared to Sunday. Objective Active Medications: Acetaminophen (Tylenol Tab*) 650 mg PO Q4H PRN PRN Reason: PAIN-MILD/TEMP >/= 100.4 Last Admin: 09/07/19 20:23 Dose: 650 mg Heparin Sodium (Porcine) (Heparin Vial(*)) 5,000 units SUBCUT Q8HR [facility] Last Admin: 09/08/19 05:52 Dose: 5,000 units Vancomycin HCl 750 mg/ Sodium (Chloride) 250 mls @ 166.667 mls/hr IVPB Q8H [facility] Last Admin: 09/08/19 08:54 Dose: 166.667 mls/hr Piperacillin Sod/Tazobactam (Sod 3.375 gm/ Sodium Chloride) 100 mls @ 200 mls/ hr IVPB Q6H [facility] Last Admin: 09/08/19 05:12 Dose: 200 mls/hr Loperamide HCl (Imodium Cap*) 2 mg PO .SEE DIRECTIONS PRN PRN Reason: DIARRHEA Last Admin: 09/07/19 17:48 Dose: 2 mg Magnesium Oxide (Magox 400 Tab*) 800 mg PO DAILY [facility] Last Admin: 09/08/19 08:47 Dose: 800 mg Metoprolol Succinate (Toprol Xl Tab*) 25 mg PO BID [facility] Last Admin: 09/08/19 08:47 Dose: 25 mg Morphine Sulfate (Morphine Inj (Syringe))*) 2 mg IV Q4H PRN PRN Reason: PAIN - SEVERE Oxycodone/Acetaminophen (Percocet 5/325 Tab*) 1 tab PO Q4H PRN PRN Reason: PAIN - MODERATE Pharmacy Consult (Vancomycin Per Pharmacy*) 1 note FOLLOW UP .VANC PER PHARMACY [facility]; Protocol Pharmacy Consult (Zosyn Per Pharmacy*) 1 note FOLLOW UP .ZOSYN PER PHARMACY [facility] Pharmacy Profile Note (Vancomycin Trough Check) 1 note FOLLOW UP 08 ONE Stop: 09/09/19 08:31 Vital Signs - 8 hr 09/08/19 09/08/19 09/08/19 03:15 05:19 07:30 Temperature 98.1 F Pulse Rate 67 73 Respiratory 18 16 16 Rate Blood Pressure 166/74 122/58 (mmHg) O2 Sat by Pulse 97 Oximetry 09/08/19 07:47 Temperature 98.9 F Pulse Rate 73 Respiratory 16 Rate Blood Pressure 151/71 (mmHg) O2 Sat by Pulse 97 Oximetry Oxygen Devices in Use Now: None Appearance: NAD Eyes: No Scleral Icterus Neck: NL Appearance and Movements; NL JVP Cardiovascular: NL Sounds; No Murmurs; No JVD Extremities: No Edema Skin: - - circumferential erythema with extensive weeping blisters/bullae on posterior right calf. few ulcers/punctures. Neurological: Alert and Oriented x 3 Nutrition: Taking PO's Result Diagrams: 09/08/19 04:51 09/08/19 04:51 Additional Lab and Data: Laboratory Results - last 24 hr 09/08/19 09/08/19 04:51 04:51 WBC 8.5 RBC 3.30 L Hgb 11.2 L Hct 32 L MCV 98 H MCH 34 H MCHC 35 RDW 15 Plt Count 190 MPV 8.3 Neut % (Auto) 85.0 Lymph % (Auto) 6.2 [place] % (Auto) 8.5 Eos % (Auto) 0.2 Baso % (Auto) 0.1 Absolute Neuts (auto) 7.2 Absolute Lymphs (auto) 0.5 L Absolute Monos (auto) 0.7 Absolute Eos (auto) 0.0 Absolute Basos (auto) 0.0 Absolute Nucleated RBC 0.0 Nucleated RBC % 0.0 Sodium 139 Potassium 3.9 Chloride 108 Carbon Dioxide 26 Anion Gap 5 BUN 13 Creatinine 0.82 Est GFR ( Amer) 109.7 Est GFR (Non-Af Amer) 90.6 BUN/Creatinine Ratio 15.9 Glucose 129 H Calcium 7.7 L C-Reactive Protein 164.64 H Microbiology and Other Data: Microbiology 09/05/19 15:22 Blood Venous Aerobic Blood Culture - Preliminary No Growth Day 3 09/05/19 15:22 Blood Venous Anaerobic Blood Culture - Preliminary No Growth Day 3 09/05/19 15:22 Blood Venous Aerobic Blood Culture - Preliminary No Growth Day 3 09/05/19 15:22 Blood Venous Anaerobic Blood Culture - Preliminary No Growth Day 3 09/06/19 13:28 Blood Venous Aerobic Blood Culture - Preliminary No Growth Day 2 09/06/19 13:28 Blood Venous Anaerobic Blood Culture - Preliminary No Growth Day 2 09/06/19 10:42 Leg Right Gram Stain - Final 09/06/19 10:42 Leg Right Wound Culture - Preliminary Normal Angelica 09/06/19 10:42 Wound - Right Leg Anaerobic Culture - Preliminary No Growth Day 1 09/06/19 10:42 Wound - Right Leg Anaerobic Culture - Preliminary 09/06/19 10:42 Leg Right Skin and Soft Tissue MRSA/MSSA (PCR - Final Mrsa Negative S.aureus Negative 09/06/19 10:42 Leg Right Gram Stain - Final 09/06/19 10:42 Leg Right Wound Culture - Preliminary Normal Angelica Assess/Plan/Problems-Billing Assessment: 78 yo male PMH PMR on chronic prednisone p/w group a strep cellulitis of the right lower extremity causing sepsis and bacteremia. - Patient Problems (1) Streptococcal cellulitis Current Visit: Yes Status: Acute Code(s): L03.90 - CELLULITIS, UNSPECIFIED; B95.5 - UNSP STREPTOCOCCUS THE CAUSE OF DISEASES CLASSD [facility] SNOMED Code( s): 447370496 Comment: Patient was switched from clindamycin (got 600mg once then 300mg q8 ) to vancomycin + zosyn at [place] when the leg got more painful and swelling. Has been on vanc + zosyn here. Appreciate ID recs - switch to Ceftriaxone + clinda 300mg po q8 Appreciate Ortho recs. Monitoring for fascitis given significant pain but no air on imaging or crepitus with improving pain levels. CK wnl. (2) Sepsis Current Visit: Yes Status: Acute Comment: leukocytosis, tachycardia to 108 at [facility], bandemia 8% at [place], source bacteremia/cellulitis (Strep Group A). improving (3) Streptococcal bacteremia Current Visit: Yes Status: Acute Code(s): R78.81 - BACTEREMIA; B95.5 - UNSP STREPTOCOCCUS THE CAUSE OF DISEASES CLASSD [facility] SNOMED Code(s): 055146627726 Comment: Repeat BCx from 09/05 is NGTD x3 days and from 09/06 in NGTD x 2 day. Would need ECHO if turns positive. (4) PMR (polymyalgia rheumatica) Current Visit: Yes Status: Acute Code(s): M35.3 - POLYMYALGIA RHEUMATICA SNOMED Code(s): 28171299 Comment: He recently stopped long standing predinsone (without telling Dr. Sheth, his father in law) but plans to return to it. (5) Hypertension Current Visit: Yes Status: Acute Code(s): I10 - ESSENTIAL (PRIMARY) HYPERTENSION SNOMED Code(s): 35609803 Comment: SBP 130-150s continue metoprolol Status and Disposition: \ medicine inpatient. PT rec: continued skilled PT services. Will need continued IV abx per ID for now
--- NOTE | 2019-09-08 11:23 | PN ---
Progress Note - Progress Note Date of Service: 09/08/19 SOAP: Subjective: [Pt was seen this am lying in bed. States that the pain is improving at this time. He denies any chest pain, SOB, nausea or vomiting. States that he has less pain when weight bearing on the leg. Objective: General: Alert and oriented x3. NAD. RLE: Dressing was saturated with serous drainage from blisters. Dressing was changed. There is increase in the bullae on the medial aspect of the leg. There is weeping from these areas with a yellow fluid produced. There is a small opening present anteriormedial. He tolerated the dressing change better at this point. He has no TTP of the knee and no pain with ROM of the knee although there is some mild edema present. No pain with ROM of the ankle or toes. He is NVI and has a 2+ DP pulse. Vital Signs Temp 98.9 F 09/08/19 07:47 Pulse 73 09/08/19 07:47 Resp 16 09/08/19 07:47 BP 151/71 09/08/19 07:47 Pulse Ox 97 09/08/19 07:47 Intake & Output 09/07/19 09/08/19 09/08/19 18:59 06:59 18:59 Intake Total 670 1475 Output Total 325 200 Balance 345 1275 Intake: IV Fluids 10 NS (0.9%) 10 IVPB 490 475 ABX - PIPERACILLIN 220 200 ABX - VANCOMYCIN 270 275 Medicated IV 50 Magnesium 50 Oral 120 1000 Output: Urine 325 200 Other: Estimated Void Medium Date of Last Bowel 09/08/19 Movement # Bowel Movements 1 1 Estimated Stool Amount Medium Small # Voids 1 Assessment: Cellulitis, minimal myositis with Strep Pyogenes Formerly septic, bacteremic Plan: - Continue IV abx - DSD change daily. DSD will be important to prevent superinfection as his blisters pop. - Still no surgical indication. - Continue daily CRP & wound checks. - ID saw the pt today. Appreciate input.
[2019-09-08] MEDS: cefTRIAXone(*) 2 GM in NS 0.9% 100 ML* 100 ML IVPB SCH (12:13)
[2019-09-08] MEDS: Clindamycin CAP* 150 MG PO SCH ×2 (14:20→22:06)
--- NOTE | 2019-09-08 16:20 | CONS ---
CONSULTATION REPORT: DATE OF CONSULT: 09/08/19 PRIMARY CARE PROVIDER: Dr. Kev Sheth. PROVIDER REQUESTING CONSULTATION: Dr. Cole Malik. CONSULTING SERVICE: Infectious Disease. PROVIDER: Felipe Hewitt NP ATTENDING PROVIDER: Dr. Pola Peace * (dictated by FELIPE HEWITT NP). REASON FOR CONSULT: Right lower extremity cellulitis and bacteremia. IMPRESSION: 1. Right lower extremity cellulitis. Secondary to the group A strep as he grew this from cultures obtained at [facility]. He has been on vancomycin and Zosyn. He is afebrile. Leukocytosis has resolved. His CRP is trending down. Differential diagnosis would include necrotizing fasciitis, as this has not continued to progress, I have low suspicion that this is necrotizing fasciitis. 2. Group A strep bacteremia. Secondary to #1. The patient has had blood cultures with no growth from 09/05/19 and 09/06/19. 3. Polymyalgia rheumatica, on chronic steroids. RECOMMENDATIONS/PLAN: Recommend discontinuing vancomycin and Zosyn, will start ceftriaxone 2 g IV daily in addition to clindamycin 300 mg by mouth 3 times daily. We will continue to follow along. The patient can be transitioned to oral antibiotics when he has had significant improvement in the erythema and edema and to complete his course of antibiotics. He has been encouraged to keep the leg elevated to assist with edema. HISTORY OF PRESENT ILLNESS: Mr. Davis is a 78-year-old male with past medical history significant for polymyalgia rheumatica and spinal stenosis, who states that he had been in his usual state of health. He reports that approximately 2 to 3 weeks ago he had noticed a small laceration to his right leg. He is unsure how that had gotten there, but he was treating it with Neosporin at home. He states that he had been feeling well, denied any fevers or chills, and then on he had noticed that the leg became red and edematous and he had developed fevers and chills. He presented to [facility] on 09/03/19 with fevers, chills, hypotension. He was noted to have drainage from the wound. He received clindamycin intravenously. He continued to have severe pain in the leg. He was noted to have group A strep bacteremia and group A strep from the wound culture. His antibiotics were broadened to vanco and Zosyn when he was admitted to [facility] on 09/05/19. The patient noted to have marked edema to the leg. He feels that it has been improving. He had a Doppler showing a superficial vein thrombus. Additionally , he had a right lower extremity CT showing cellulitis and edema, but no other abnormalities. [facility] was concerned for compartment syndrome and so they transferred him to [facility] for further evaluation after he was evaluated by Dr. Guadalupe at [place] and he was sent for evaluation for possible abscess. While at [facility], he has continued to receive vancomycin and Zosyn. He has been afebrile since his admission. His leukocytosis has resolved. His ESR was elevated on admission. His CRP was significantly elevated at 367 on admission here and is down to 164.69 today. He has had repeat blood cultures with no growth on day 2 and day 1. He had a repeat wound culture with normal sky. The patient denies any fevers, chills. He does report intermittent nausea. He denies vomiting, diarrhea, recent travel, respiratory symptoms, or urinary symptoms. He does report some discomfort in the right leg, but feels that overall this is improving. The patient reports discomfort in his right hip, but is able to bear weight on this. PAST MEDICAL HISTORY: 1. Polymyalgia rheumatica, on chronic steroids. 2. Spinal stenosis. PAST SURGICAL HISTORY: 1. Status post left rotator cuff repair. 2. Status post bilateral total knee arthroplasties. 3. Status post prostatectomy. 4. Status post vasectomy. 5. Status post left inguinal hernia repair. MEDICATIONS: Home medications: 1. Toprol-XL 25 mg by mouth twice daily. 2. Prednisone 20 mg by mouth, the patient has been off of this for a week. Hospital medications: 1. Acetaminophen 650 mg by mouth every 4 hours as needed for fever or pain. 2. Heparin sodium 5000 units subcutaneous every 8 hours. 3. Imodium 2 mg after each bowel movement as needed, maximum daily dose 16 mg for loose stools. 4. Magnesium oxide 800 mg by mouth daily. 5. Metoprolol succinate 25 mg by mouth twice daily. 6. Morphine sulfate 2 mg IV every 4 hours as needed for fever or pain. 7. Oxycodone/acetaminophen 1 tablet by mouth every 4 hours as needed for pain. 8. Vancomycin 750 mg IV every 8 hours. 9. Zosyn 3.375 g IV every 6 hours. ALLERGIES: No known drug allergies. FAMILY HISTORY: Denies family history of recurrent or resistant infections, coronary artery disease. Mother with a history of diabetes mellitus. Brothers with history of prostate cancer. SOCIAL HISTORY: Denies alcohol, tobacco, or recreational drug use. REVIEW OF SYSTEMS: I performed a 10-point review of systems. All the pertinent positives and negatives are mentioned in the history of present illness. The remaining review of systems are negative. PHYSICAL EXAM: Vital Signs: Temperature 98.9, heart rate 73, respiratory rate 16, O2 sat 97% on room air, blood pressure 151/71. General Appearance: Alert, appears to be in no acute distress. Head: Normocephalic, atraumatic. EENT: Extraocular movements are intact. No subconjunctival hemorrhage. Moist mucous membranes. Neck: Supple. No lymphadenopathy noted. Neurological: Alert and oriented x4. Cranial nerves II through XII are grossly intact. Cardiovascular: Regular rate and rhythm. S1 and S2 present. No murmurs, rubs, or gallops heard. Respiratory: There is no accessory muscle use. The lungs are clear to auscultation bilaterally. Abdomen: Bowel sounds present. Abdomen is soft, nontender, nondistended. Extremities: There is 2+ lower extremity edema on the right. Musculoskeletal: No clubbing or cyanosis noted. Exhibits good strength in all extremities. He has full range of motion to the right ankle, knee, and hip. There is no tenderness with palpation of the right ankle, knee, or hip. There is no effusion noted in the right knee. He has negative log roll on the right. Skin: There is significant dark colored erythema with multiple large bullae and serous drainage to the right lower leg in addition to macerated skin. DIAGNOSTIC STUDIES/LAB DATA: Sodium 139, potassium 3.9, chloride 108, CO2 of 26 , BUN 13, creatinine 0.82, glucose 129. White blood cell count 8.5, hemoglobin 11.2, hematocrit 32, platelet count 190. ESR on 09/05/19 was 91. CRP today 164.64. Please see impression and recommendations outlined above, recommendations have been discussed with Dr. Cole Malik and IRVIN Hernandez. Thank you for asking us to see Mr. Davis in consultation. The case has been reviewed with my attending, Dr. Pola Peace, who agrees with the plan of care. Reviewed by ABRIL ENAMORADO 09/10/19 0822 [id number]/[facility] #: [id number] ISMA
[2019-09-09 05:17] LABS: ABS Lymphocytes 0.9 10^3/ul (1.0-4.8); ABS Monocytes 0.7 10^3/ul (0-0.8); ABS Neutrophils 8.4 10^3/ul (1.5-7.7); Eosinophil % 0.2 %; Hematocrit 35 % (42-52); Hemoglobin 12.3 g/dL (14.0-18.0); Lymphocyte % 8.7 %; Mean Corpuscular HGB Conc 35 g/dL (31-36); Mean Corpuscular Hemoglobin 34 pg (27-31); Mean Corpuscular Volume 96 fL (80-94); Mean Platelet Volume 7.9 fL (7.4-10.4); Platelet Count 278 10^3/uL (150-450); Red Blood Count 3.65 10^6 /uL (4.18-5.48); Red Cell Distribution Width 15 % (10-15)
[2019-09-09 05:32] LABS: BUN/Creatinine Ratio 13.8 (8-20); C Reactive Protein 184.97 mg/L (<8.01); Calcium 7.9 mg/dL (8.6-10.3); EGFR African American 112.8 (>60); EGFR Non-African American 93.3 (>60); Potassium 3.3 mmol/L (3.5-5.0)
[2019-09-09] MEDS: Heparin VIAL(*) 5000 UNITS/ML VIAL (FIVE THOUSAND) SUBCUT SCH ×3 (05:41→21:42)
[2019-09-09] MEDS: Magnesium Oxide TAB* 400 MG PO SCH (08:26)
[2019-09-09] MEDS: Metoprolol Succinate XL TAB* 25 MG PO SCH ×2 (08:26→21:42)
[2019-09-09] MEDS: Clindamycin CAP* 150 MG PO SCH ×3 (08:26→21:42)
[2019-09-09] MEDS ORDERED: Vancomycin Trough Check NOTE FOLLOW UP ONE (08:30)
--- NOTE | 2019-09-09 09:37 | PN ---
Progress Note - Progress Note Date of Service: 09/09/19 SOAP: Subjective: CC: Right LE cellulitis HPI: Mr. Davis is a 78 yo male with PMH significant for PMR on chronic steroids and spinal stenosis. Denies fever, chills, nausea, vomiting, or diarrhea. The right LE continues to have a significant amount of serous drainage the dressing is requiring frequent changes. He is able to ambulate, some discomfort when he is first up, but this improves once he has been ambulating. Objective: Vital Signs - 8 hr 09/09/19 09/09/19 09/09/19 04:46 07:16 08:00 Temperature 97.9 F 98.6 F Pulse Rate 76 77 Respiratory 20 16 18 Rate Blood Pressure 138/81 152/74 (mmHg) O2 Sat by Pulse 96 97 Oximetry Physical Exam: General: NAD, sitting up in bed Neurological: Alert and Oriented x4 HEENT: Moist MM, no thrush Cardiovascular: Heart rate regular Respiratory: Lung sounds clear Abdominal: Bowel sounds present; ABD soft, non tender and non distended MSK: Full ROM of the right hip, knee, and ankle. No tenderness with palpation of the right hip, knee, and ankle. No tenderness with palpation of the left knee , and full ROM. No effusion in bilateral knees. Right MTP with edema and mild errythmea, full ROM of the joint and no tenderness with palpation. Skin: Errythema and ecchymosis to the right LE with multiple large bullae. There is a large amount of serous drainage. Laboratory Results - last 24 hr 09/09/19 09/09/19 05:10 05:10 WBC 10.0 RBC 3.65 L Hgb 12.3 L Hct 35 L MCV 96 H MCH 34 H MCHC 35 RDW 15 Plt Count 278 MPV 7.9 Neut % (Auto) 84.2 Lymph % (Auto) 8.7 [place] % (Auto) 6.6 Eos % (Auto) 0.2 Baso % (Auto) 0.3 Absolute Neuts (auto) 8.4 H Absolute Lymphs (auto) 0.9 L Absolute Monos (auto) 0.7 Absolute Eos (auto) 0.0 Absolute Basos (auto) 0.0 Absolute Nucleated RBC 0.0 Nucleated RBC % 0.0 Sodium 136 Potassium 3.3 L Chloride 102 Carbon Dioxide 27 Anion Gap 7 BUN 11 Creatinine 0.80 Est GFR ( Amer) 112.8 Est GFR (Non-Af Amer) 93.3 BUN/Creatinine Ratio 13.8 Glucose 117 H Calcium 7.9 L C-Reactive Protein 184.97 H Microbiology 09/06/19 10:42 Anaerobic Culture - Preliminary Wound - Right Leg No Growth Day 3 09/06/19 10:42 Gram Stain - Final Leg Right Wound Culture - Preliminary Normal Angelica 09/06/19 10:42 Anaerobic Culture - Preliminary Wound - Right Leg 09/06/19 10:42 Skin and Soft Tissue MRSA/MSSA (PCR - Final Leg Right Mrsa Negative S.aureus Negative Gram Stain - Final Wound Culture - Preliminary Normal Angelica 09/05/19 15:22 Aerobic Blood Culture - Preliminary Blood Venous No Growth Day 3 Anaerobic Blood Culture - Preliminary No Growth Day 3 09/05/19 15:22 Aerobic Blood Culture - Preliminary Blood Venous No Growth Day 3 Anaerobic Blood Culture - Preliminary No Growth Day 3 09/06/19 13:28 Aerobic Blood Culture - Preliminary Blood Venous No Growth Day 2 Anaerobic Blood Culture - Preliminary No Growth Day 2 Assessment: 1. Right LE cellulitis. CRP remain elevated, but stable. Afebrile and no leukocytosis. Initial wound cultures from [facility] with Group A strep. Initially also with Group A strep bacteremia. CRP is up slightly today. Continues to have significant erythema and serous drainage in the right leg. 2. Group A strep bacteremia. Secondary to #1. Repeat blood cultures with no growth on day 3. 3. PMR. On chronic steroids Plan: Continue Ceftriaxone and Clindamycin.
--- NOTE | 2019-09-09 10:20 | PN ---
Progress Note - Progress Note Date of Service: 09/09/19 SOAP: Subjective: []Pt seen and examined at bedside. Reports occasional right hip pain with ambulation, he feels this is from sitting in uncomfortable positions to maintain comfort of right lower leg. Hip pain is intermittent with ambulation and is not painful with motion while in bed. Denies b/l knee pain, fever or chills. Objective: []General: Alert and in NAD RLE: Dressing with moderate serous strike through. Dressing was changed with telfa, abds, ava applied. The entire medial lower leg is erythematous with large bullae few areas of weeping serous fluid, no purulence. He tolerated the dressing change well. NVI distally. He has no erythema and tenderness to palpation of the knee or hip and no pain with PROM 0-90 of the hip or knee, no pain with log roll of the hip. No pain with PROM of the ankle or toes, there is erythema over the first medial MTP though no tenderness and no pain with full PROM. LLE AROM hip and knee 0-90 without pain Assessment: Cellulitis, minimal myositis with Strep Pyogenes Formerly septic, bacteremic Plan: - Continue IV abx per ID- clindamycin and ceftriaxone with change from vanco/ zosyn - DSD change daily and as needed, already 3 dressing changes today please change when dressing saturates - Still no surgical indication. - Continue daily CRP & wound checks. - Follow right hip/ MTP exam with low threshold for imaging Vital Signs Temp 98.6 F 09/09/19 07:16 Pulse 77 09/09/19 07:16 Resp 18 09/09/19 08:00 BP 152/74 09/09/19 07:16 Pulse Ox 97 09/09/19 07:16 Intake & Output 09/08/19 09/09/19 09/09/19 18:59 06:59 18:59 Intake Total 760 400 Output Total 700 350 225 Balance 60 50 -225 Intake: IV Fluids 280 ABX - VANCOMYCIN 280 Oral 480 400 Output: Urine 700 350 225 Other: Estimated Void Small # Voids 1 Laboratory Last Values WBC 10.0 10^3/uL (3.5-10.8) 09/09/19 05:10 RBC 3.65 10^6 /uL (4.18-5.48) L 09/09/19 05:10 Hgb 12.3 g/dL (14.0-18.0) L 09/09/19 05:10 Hct 35 % (42-52) L 09/09/19 05:10 MCV 96 fL (80-94) H 09/09/19 05:10 MCH 34 pg (27-31) H 09/09/19 05:10 MCHC 35 g/dL (31-36) 09/09/19 05:10 RDW 15 % (10-15) 09/09/19 05:10 Plt Count 278 10^3/uL (150-450) 09/09/19 05:10 MPV 7.9 fL (7.4-10.4) 09/09/19 05:10 Neut % (Auto) 84.2 % 09/09/19 05:10 Lymph % (Auto) 8.7 % 09/09/19 05:10 [place] % (Auto) 6.6 % 09/09/19 05:10 Eos % (Auto) 0.2 % 09/09/19 05:10 Baso % (Auto) 0.3 % 09/09/19 05:10 Absolute Neuts (auto) 8.4 10^3/ul (1.5-7.7) H 09/09/19 05:10 Absolute Lymphs (auto) 0.9 10^3/ul (1.0-4.8) L 09/09/19 05:10 Absolute Monos (auto) 0.7 10^3/ul (0-0.8) 09/09/19 05:10 Absolute Eos (auto) 0.0 10^3/ul (0-0.6) 09/09/19 05:10 Absolute Basos (auto) 0.0 10^3/ul (0-0.2) 09/09/19 05:10 Absolute Nucleated RBC 0.0 10^3/ul 09/09/19 05:10 Nucleated RBC % 0.0 09/09/19 05:10 ESR 91 mm/Hr (0-19) H 09/05/19 15:23 Sodium 136 mmol/L (135-145) 09/09/19 05:10 Potassium 3.3 mmol/L (3.5-5.0) L 09/09/19 05:10 Chloride 102 mmol/L (101-111) 09/09/19 05:10 Carbon Dioxide 27 mmol/L (22-32) 09/09/19 05:10 Anion Gap 7 mmol/L (2-11) 09/09/19 05:10 BUN 11 mg/dL (6-24) 09/09/19 05:10 Creatinine 0.80 mg/dL (0.67-1.17) 09/09/19 05:10 Est GFR ( Amer) 112.8 (>60) 09/09/19 05:10 Est GFR (Non-Af Amer) 93.3 (>60) 09/09/19 05:10 BUN/Creatinine Ratio 13.8 (8-20) 09/09/19 05:10 Glucose 117 mg/dL (70-100) H 09/09/19 05:10 Lactic Acid 1.3 mmol/L (0.5-2.0) 09/05/19 15:23 Calcium 7.9 mg/dL (8.6-10.3) L 09/09/19 05:10 Magnesium 1.8 mg/dL (1.9-2.7) L 09/07/19 04:54 Total Creatine Kinase 98 U/L (10-223) 09/07/19 08:24 C-Reactive Protein 184.97 mg/L (<8.01) H 09/09/19 05:10 Vancomycin Trough 7.2 mcg/mL 09/07/19 08:24
[2019-09-09] MEDS: cefTRIAXone(*) 2 GM in NS 0.9% 100 ML* 100 ML IVPB SCH (11:37)
--- NOTE | 2019-09-09 18:36 | PN ---
Subjective Date of Service: 09/09/19 Interval History: No acute events overnight. Tmax of 100.0 at 1700 yesterday. Very fatigued, sleeping a lot. Pain is improving each day. Dressing soaked and getting more frequent changes. CRP mayo slightly 184 from 164. No other complaints other than very poor appetite remembers that he had sensation of "sparklers" in his right shoulder before he presented with infection. Hx of OA there but denied swelling, erythema, warmth or increased pain over his baseline. Objective Active Medications: Acetaminophen (Tylenol Tab*) 650 mg PO Q4H PRN PRN Reason: PAIN-MILD/TEMP >/= 100.4 Last Admin: 09/07/19 20:23 Dose: 650 mg Clindamycin HCl (Cleocin Cap*) 300 mg PO TID [facility] Last Admin: 09/09/19 13:36 Dose: 300 mg Heparin Sodium (Porcine) (Heparin Vial(*)) 5,000 units SUBCUT Q8HR [facility] Last Admin: 09/09/19 13:36 Dose: 5,000 units Ceftriaxone Sodium 2 gm/ (Sodium Chloride) 100 mls @ 200 mls/hr IVPB Q24H [facility] Last Admin: 09/09/19 11:37 Dose: 200 mls/hr Loperamide HCl (Imodium Cap*) 2 mg PO .SEE DIRECTIONS PRN PRN Reason: DIARRHEA Last Admin: 09/07/19 17:48 Dose: 2 mg Magnesium Oxide (Magox 400 Tab*) 800 mg PO DAILY [facility] Last Admin: 09/09/19 08:26 Dose: 800 mg Metoprolol Succinate (Toprol Xl Tab*) 25 mg PO BID [facility] Last Admin: 09/09/19 08:26 Dose: 25 mg Morphine Sulfate (Morphine Inj (Syringe))*) 2 mg IV Q4H PRN PRN Reason: PAIN - SEVERE Oxycodone/Acetaminophen (Percocet 5/325 Tab*) 1 tab PO Q4H PRN PRN Reason: PAIN - MODERATE Vital Signs - 8 hr 09/09/19 09/09/19 10:56 15:22 Temperature 99 F 98.1 F Pulse Rate 73 76 Respiratory 16 18 Rate Blood Pressure 137/56 157/80 (mmHg) O2 Sat by Pulse 98 99 Oximetry Oxygen Devices in Use Now: None Appearance: NAD Respiratory: Symmetrical Chest Expansion and Respiratory Effort, Clear to Auscultation Cardiovascular: NL Sounds; No Murmurs; No JVD, RRR Abdominal: NL Sounds; No Tenderness; No Distention, No Hepatosplenomegaly Extremities: - - 2+ edema distal right lower extremity. Skin: - - right lower extremity not unwrapped fully but distal weeping bullae on posterior aspect. Some pain with ankle dorsal flexion. Neurological: Alert and Oriented x 3 Nutrition: Taking PO's Result Diagrams: 09/09/19 05:10 09/09/19 05:10 Additional Lab and Data: Laboratory Results - last 24 hr 09/09/19 09/09/19 05:10 05:10 WBC 10.0 RBC 3.65 L Hgb 12.3 L Hct 35 L MCV 96 H MCH 34 H MCHC 35 RDW 15 Plt Count 278 MPV 7.9 Neut % (Auto) 84.2 Lymph % (Auto) 8.7 [place] % (Auto) 6.6 Eos % (Auto) 0.2 Baso % (Auto) 0.3 Absolute Neuts (auto) 8.4 H Absolute Lymphs (auto) 0.9 L Absolute Monos (auto) 0.7 Absolute Eos (auto) 0.0 Absolute Basos (auto) 0.0 Absolute Nucleated RBC 0.0 Nucleated RBC % 0.0 Sodium 136 Potassium 3.3 L Chloride 102 Carbon Dioxide 27 Anion Gap 7 BUN 11 Creatinine 0.80 Est GFR ( Amer) 112.8 Est GFR (Non-Af Amer) 93.3 BUN/Creatinine Ratio 13.8 Glucose 117 H Calcium 7.9 L C-Reactive Protein 184.97 H Microbiology and Other Data: Microbiology 09/05/19 15:22 Blood Venous Aerobic Blood Culture - Preliminary No Growth Day 4 09/05/19 15:22 Blood Venous Anaerobic Blood Culture - Preliminary No Growth Day 09/05/19 15:22 Blood Venous Aerobic Blood Culture - Preliminary No Growth Day 4 09/05/19 15:22 Blood Venous Anaerobic Blood Culture - Preliminary No Growth Day 4 09/06/19 13:28 Blood Venous Aerobic Blood Culture - Preliminary No Growth Day 3 09/06/19 13:28 Blood Venous Anaerobic Blood Culture - Preliminary No Growth Day 3 09/06/19 10:42 Wound - Right Leg Anaerobic Culture - Preliminary No Growth Day 3 09/06/19 10:42 Leg Right Gram Stain - Final 09/06/19 10:42 Leg Right Wound Culture - Preliminary Normal Angelica 09/06/19 10:42 Wound - Right Leg Anaerobic Culture - Preliminary 09/06/19 10:42 Leg Right Skin and Soft Tissue MRSA/MSSA (PCR - Final Mrsa Negative S.aureus Negative 09/06/19 10:42 Leg Right Gram Stain - Final 09/06/19 10:42 Leg Right Wound Culture - Preliminary Normal Angelica Assess/Plan/Problems-Billing Assessment: 78 yo male PMH PMR on chronic prednisone p/w group a strep cellulitis of the right lower extremity causing sepsis(resolved) and bacteremia(resolved). Currently on CFTX and po clindamycin (initially was on vancomycin and zosyn). - Patient Problems (1) Streptococcal cellulitis Current Visit: Yes Status: Acute Code(s): L03.90 - CELLULITIS, UNSPECIFIED; B95.5 - UNSP STREPTOCOCCUS THE CAUSE OF DISEASES CLASSD [facility] SNOMED Code( s): 789826484 Comment: Patient was switched from clindamycin (got 600mg once then 300mg q8 ) to vancomycin + zosyn at [place] when the leg got more painful and swelling. Has been on vanc + zosyn here. Appreciate ID recs - currently on Ceftriaxone + clinda 300mg po q8. Inpatient for continued IV antibiotics for now. Will get another CK tomorrow. Appreciate Ortho recs. Monitoring for fascitis given significant pain but no air on imaging or crepitus with improving pain levels. CK wnl. (2) Sepsis Current Visit: Yes Status: Acute Comment: leukocytosis, tachycardia to 108 at [facility], bandemia 8% at [place], source bacteremia/cellulitis (Strep Group A). resolved. (3) Streptococcal bacteremia Current Visit: Yes Status: Acute Code(s): R78.81 - BACTEREMIA; B95.5 - UNSP STREPTOCOCCUS THE CAUSE OF DISEASES CLASSD [facility] SNOMED Code(s): 446326338121 Comment: Repeat BCx from 09/05 is NGTD x4 days and from 09/06 in NGTD x 3 day. Would need ECHO if turns positive. (4) PMR (polymyalgia rheumatica) Current Visit: Yes Status: Acute Code(s): M35.3 - POLYMYALGIA RHEUMATICA SNOMED Code(s): 19454949 Comment: He recently stopped long standing predinsone (without telling Dr. Sheth, his father in law) but plans to return to it. (5) Hypertension Current Visit: Yes Status: Acute Code(s): I10 - ESSENTIAL (PRIMARY) HYPERTENSION SNOMED Code(s): 31424271 Comment: SBP 130-150s continue metoprolol Status and Disposition: \\ medicine inpatient. PT rec: continued skilled PT services. Will need continued IV abx per ID for now but hold off on PICC as MAY not need homegoing
[2019-09-09] MEDS: Acetaminophen TAB* 325 MG PO PRN (19:22)
[2019-09-10] MEDS: Acetaminophen TAB* 325 MG PO PRN ×3 (05:18→17:44)
[2019-09-10] MEDS: Heparin VIAL(*) 5000 UNITS/ML VIAL (FIVE THOUSAND) SUBCUT SCH ×2 (05:18→13:59)
[2019-09-10 05:25] LABS: ABS Lymphocytes 0.8 10^3/ul (1.0-4.8); ABS Monocytes 0.7 10^3/ul (0-0.8); ABS Neutrophils 8.8 10^3/ul (1.5-7.7); Eosinophil % 0.2 %; Hematocrit 30 % (42-52); Hemoglobin 10.3 g/dL (14.0-18.0); Lymphocyte % 7.9 %; Mean Corpuscular HGB Conc 34 g/dL (31-36); Mean Corpuscular Hemoglobin 34 pg (27-31); Mean Corpuscular Volume 98 fL (80-94); Mean Platelet Volume 7.7 fL (7.4-10.4); Platelet Count 256 10^3/uL (150-450); Red Blood Count 3.07 10^6 /uL (4.18-5.48); Red Cell Distribution Width 14 % (10-15); White Blood Count 10.3 10^3/uL (3.5-10.8)
[2019-09-10 05:40] LABS: C Reactive Protein 184.33 mg/L (<8.01); Calcium 7.5 mg/dL (8.6-10.3); EGFR African American 157.3 (>60); Potassium 3.4 mmol/L (3.5-5.0)
[2019-09-10] MEDS ORDERED: Potassium Chloride* LIQUID 20 MEQ/15 ML UDC PO ONE (08:47)
[2019-09-10] MEDS: Metoprolol Succinate XL TAB* 25 MG PO SCH (09:12)
[2019-09-10] MEDS: Magnesium Oxide TAB* 400 MG PO SCH (09:12)
[2019-09-10] MEDS: Clindamycin CAP* 150 MG PO SCH ×2 (09:12→13:59)
--- NOTE | 2019-09-10 10:19 | PN ---
Progress Note - Progress Note Date of Service: 09/10/19 SOAP: Subjective: CC: cellulitis HPI: 78 year old man with right leg cellulitis, myositis, fasciitis by MRIl pain improving, walking laps now, almost no pain in leg and foot. Some drainage from blisters. Appetite improving, no fever, rash, or diarrhea. Objective: Vital Signs Temp 37.0 C 09/10/19 07:40 Pulse 65 09/10/19 07:40 Resp 16 09/10/19 07:40 BP 137/66 09/10/19 07:40 Pulse Ox 98 09/10/19 07:40 Intake & Output 09/09/19 09/10/19 09/10/19 18:59 06:59 18:59 Intake Total 320 1045 Output Total 560 625 Balance -240 420 Intake: IV Fluids 20 NS (0.9%) 20 IVPB 100 ABX - CEFTRIAXONE 100 Oral 200 1045 Output: Urine 560 625 Other: # Bowel Movements 1 Estimated Stool Amount Small Gen:awake, no distress HEENT: no thrush Heart:RRR no murmur Lungs:CTA BL Abd:+BS NTND soft Skin: no rash MSK: Right knee non tender, no effusion; diffuse lower leg and foot edema, leg and ankle non tender; forefoot slightly tender; erythema and purple discoloration with medial diffuse bullae filled with serous fluid Laboratory Results - last 24 hr 09/10/19 09/10/19 05:12 05:12 WBC 10.3 RBC 3.07 L Hgb 10.3 L Hct 30 L MCV 98 H MCH 34 H MCHC 34 RDW 14 Plt Count 256 MPV 7.7 Neut % (Auto) 85.0 Lymph % (Auto) 7.9 [place] % (Auto) 6.7 Eos % (Auto) 0.2 Baso % (Auto) 0.2 Absolute Neuts (auto) 8.8 H Absolute Lymphs (auto) 0.8 L Absolute Monos (auto) 0.7 Absolute Eos (auto) 0.0 Absolute Basos (auto) 0.0 Absolute Nucleated RBC 0.0 Nucleated RBC % 0.0 Sodium 136 Potassium 3.4 L Chloride 104 Carbon Dioxide 27 Anion Gap 5 BUN 9 Creatinine 0.60 L Est GFR ( Amer) 157.3 Est GFR (Non-Af Amer) 130.0 BUN/Creatinine Ratio 15.0 Glucose 109 H Calcium 7.5 L Total Creatine Kinase 34 C-Reactive Protein 184.33 H Assessment: 1. Right leg Grp A Strep cellulitis, myositis, fasciitis (non necrotizing); improving. Bacteremia cleared. No murmur and no stigmata of IE. 2. Elevated CRP, stable 3. presence of right knee arthroplasty, asymptomatic Plan: 1. Dalvance 1500 mg x1 at 09/11/19, fu with ID next week. We discussed that he will need to continue to elevate his leg once his at home and dressing changes to keep skin dry. Bullae will open and drain over next week. 35 minutes floor time >50% face to face in counseling with patient and daughter regarding antibiotic plans and wound care issues.
[2019-09-10] MEDS: cefTRIAXone(*) 2 GM in NS 0.9% 100 ML* 100 ML IVPB SCH (12:07)
--- NOTE | 2019-09-10 13:41 | PN ---
Progress Note - Progress Note Date of Service: 09/10/19 SOAP: Subjective: []Pt seen at bedside. He feels well and desires DC home. Denies fever, chills, CP, SOB, dizziness, nausea. R hip, knee, ankle and MTPs nonpainful. Lower leg pain is improving, quite tolerable. Objective: []General: Alert and in NAD. Nontoxic appearing RLE: Dressing CDI. MTP, ankle, knee and hip nontender. nonpainful AROM of MTPs, ankle, knee, hip. Assessment: Right leg GAStrep cellulitis, myositis, fasciitis (non necrotizing); improving. Bacteremia cleared Plan: Dalvance 1500 mg x1 at 09/11/19, fu with ID next week. elevate leg dressing changes to keep skin dry as needed by patient and home nursing FU Dr Braden on Sunday, no surgical plans. Vital Signs Temp 99.1 F 09/10/19 11:11 Pulse 69 09/10/19 11:11 Resp 16 09/10/19 11:11 BP 128/66 09/10/19 11:11 Pulse Ox 100 09/10/19 11:11 Intake & Output 09/09/19 09/10/19 09/10/19 18:59 06:59 18:59 Intake Total 320 1045 720 Output Total 560 625 400 Balance -240 420 320 Intake: IV Fluids 20 NS (0.9%) 20 IVPB 100 ABX - CEFTRIAXONE 100 Oral 200 1045 720 Output: Urine 560 625 400 Other: # Bowel Movements 1 Estimated Stool Amount Small Laboratory Last Values WBC 10.3 10^3/uL (3.5-10.8) 09/10/19 05:12 RBC 3.07 10^6 /uL (4.18-5.48) L 09/10/19 05:12 Hgb 10.3 g/dL (14.0-18.0) L 09/10/19 05:12 Hct 30 % (42-52) L 09/10/19 05:12 MCV 98 fL (80-94) H 09/10/19 05:12 MCH 34 pg (27-31) H 09/10/19 05:12 MCHC 34 g/dL (31-36) 09/10/19 05:12 RDW 14 % (10-15) 09/10/19 05:12 Plt Count 256 10^3/uL (150-450) 09/10/19 05:12 MPV 7.7 fL (7.4-10.4) 09/10/19 05:12 Neut % (Auto) 85.0 % 09/10/19 05:12 Lymph % (Auto) 7.9 % 09/10/19 05:12 Blair % (Auto) 6.7 % 09/10/19 05:12 Eos % (Auto) 0.2 % 09/10/19 05:12 Baso % (Auto) 0.2 % 09/10/19 05:12 Absolute Neuts (auto) 8.8 10^3/ul (1.5-7.7) H 09/10/19 05:12 Absolute Lymphs (auto) 0.8 10^3/ul (1.0-4.8) L 09/10/19 05:12 Absolute Monos (auto) 0.7 10^3/ul (0-0.8) 09/10/19 05:12 Absolute Eos (auto) 0.0 10^3/ul (0-0.6) 09/10/19 05:12 Absolute Basos (auto) 0.0 10^3/ul (0-0.2) 09/10/19 05:12 Absolute Nucleated RBC 0.0 10^3/ul 09/10/19 05:12 Nucleated RBC % 0.0 09/10/19 05:12 ESR 91 mm/Hr (0-19) H 09/05/19 15:23 Sodium 136 mmol/L (135-145) 09/10/19 05:12 Potassium 3.4 mmol/L (3.5-5.0) L 09/10/19 05:12 Chloride 104 mmol/L (101-111) 09/10/19 05:12 Carbon Dioxide 27 mmol/L (22-32) 09/10/19 05:12 Anion Gap 5 mmol/L (2-11) 09/10/19 05:12 BUN 9 mg/dL (6-24) 09/10/19 05:12 Creatinine 0.60 mg/dL (0.67-1.17) L 09/10/19 05:12 Est GFR ( Amer) 157.3 (>60) 09/10/19 05:12 Est GFR (Non-Af Amer) 130.0 (>60) 09/10/19 05:12 BUN/Creatinine Ratio 15.0 (8-20) 09/10/19 05:12 Glucose 109 mg/dL (70-100) H 09/10/19 05:12 Lactic Acid 1.3 mmol/L (0.5-2.0) 09/05/19 15:23 Calcium 7.5 mg/dL (8.6-10.3) L 09/10/19 05:12 Magnesium 1.8 mg/dL (1.9-2.7) L 09/07/19 04:54 Total Creatine Kinase 34 U/L (10-223) 09/10/19 05:12 C-Reactive Protein 184.33 mg/L (<8.01) H 09/10/19 05:12 Vancomycin Trough 7.2 mcg/mL 09/07/19 08:24
[2019-09-10 15:29] VITALS: BP 146/71
--- NOTE | 2019-09-11 14:32 | DS ---
CC: Dr. Kev Sheth; Dr. Kev Braden, Orthopedics; Dr. Pola Peace , Infectious Disease * DISCHARGE SUMMARY: DATE OF ADMISSION: 09/05/19 DATE OF DISCHARGE: 09/10/19 PRIMARY CARE PROVIDER: Dr. Kev Sheth. MY ATTENDING WHILE IN THE HOSPITAL: Dr. Cyn Vo.* (DICTATED BY IRVIN NAVARRO) PRIMARY DISCHARGE DIAGNOSES: 1. Streptococcus group A bacteremia. 2. Right lower extremity fasciitis, cellulitis, and myositis, likely due to streptococcus group A. SECONDARY DISCHARGE DIAGNOSES: 1. History of polymyalgia rheumatica, on chronic steroids. 2. History of spinal stenosis. 3. Hypertension. STUDIES DONE WHILE IN THE HOSPITAL: Lower extremity MRI from 09/05/19 read as findings most consistent with cellulitis and fasciitis. There is no evidence for abscess. Ankle MRI from 09/05/19 read as findings most consistent with cellulitis and myositis. No evidence of abscess. Lower extremity x-ray read as no evidence of subcutaneous air, no fracture was noticed. MEDICATIONS AT DISCHARGE: 1. Tylenol 650 mg p.o. q.4 hours as needed. 2. Loperamide 2 mg p.o. with loose bowel movements. 3. Magnesium oxide 800 mg p.o. daily. 4. Metoprolol succinate 25 mg p.o. b.i.d. New medications at discharge: 1. Tylenol. 2. Loperamide 3. Magnesium oxide. Medications discontinued at discharge: None. Of note, the patient will receive a one-time dose of Dalvance the day after [facility]. HOSPITAL COURSE: This is a brief summary of the patient's presentation. For more details, please see the history and physical from Pinky Osuna MD, on . In brief, the patient is a 78-year-old male with past medical history significant for the above, who presented to the emergency department after approximately 4 days of worsening redness, pain, swelling, and discharge around a right leg laceration. The patient presented to [facility] on 09/03/19 with fevers, chills, hypotension and was treated for sepsis and improved, was treated with clindamycin intravenously. He was noted to have strep group A bacteremia and was switched to vanco and Zosyn. The patient was transferred to [facility] for ongoing care. The patient was continued on vancomycin and Zosyn, but this was transitioned to initially penicillin and clindamycin and then ceftriaxone and clindamycin per the recommendation of Infectious Disease. The patient had no signs of compartment syndrome. The patient had several normal creatine kinase levels. The patient had recently stopped longstanding prednisone for his polymyalgia rheumatica. The patient had repeat negative blood cultures twice while in the hospital and a wound culture, which only grew normal sky. The patient's CRP initially was near 400 and then declined to approximately 180 for the last several days of his hospitalization. The patient was initially unable to walk due to pain from the affected extremity, but with physical therapy, antibiotics and elevation of the leg, he was able to begin to walk and able to progress to the point where he was able to have functional capacity sufficient to go home. The patient throughout his hospitalization had copious discharge from his leg and needed frequent dressing changes. The patient was stable and amenable for discharge on 09/10/19. PHYSICAL EXAM ON THE DAY OF DISCHARGE: General: The patient is a 78-year-old male, who appears stated age and sitting in the bed, in no acute distress. Vital Signs: Temperature 97.4, pulse rate 70, respiratory rate 16, oxygen saturation 98% on room air, blood pressure 146/71. HEENT: Head normocephalic, atraumatic. Sclerae anicteric. No conjunctival injection. Nasal mucosa moist. Oral mucosa moist. No pharyngeal erythema, discharge, or exudate. Neck: Supple, nontender. No lymphadenopathy. No carotid bruits auscultated. No JVD. Cardiac: Regular rate and rhythm. No clicks, murmurs, gallops, or rubs. Pulses are 2+ in the bilateral dorsalis pedis, posterior tibialis, and radial areas. Respiratory: Clear to auscultation bilaterally. No wheezes, rales, or rhonchi. Good air exchange bilaterally. Abdomen: Soft, nontender, nondistended. Bowel sounds present and normoactive in all 4 quadrants. No hepatosplenomegaly. No abdominal bruits auscultated. No hepatojugular reflux. Genitourinary: No suprapubic or CVA tenderness. Skin: Large area of circumferential laceration with large bullae on the right lower extremity with significant purulent drainage. Small areas of urticarial rash on the back. No other rashes or ulcers. Neuro: Cranial nerves II through XII intact. No focal deficits. Alert and oriented x3. Psychiatric: Pleasant and cooperative. DISCHARGE PLAN BY PROBLEM: 1. Right lower extremity cellulitis, strep group A bacteremia, resolved. The patient has been treated with 1 week of appropriate antibiotics at this time and will receive a dose of Dalvance tomorrow at [facility], which should last him for at least a week, at which time he will follow up with Dr. Pola Peace of Infectious Disease to guide further antibiotic management. The patient will continue with wound care with Telfa dressing covered with ABD pads and covered with wrap gauze. The patient should follow up with Dr. Kev Braden of Orthopedics on 09/15/19, for ongoing monitoring for fasciitis and possible debridement. The patient should his keep his leg elevated as much as possible. The patient has no signs of endocarditis associated with this infection. 2. Polymyalgia rheumatica. The patient has been on chronic steroids, which he recently stopped. These will not be restarted while the patient has severe infection of his lower extremity and wound healing; however, the patient should discuss with his primary care provider restarting the steroids after his acute illness has resolved or if symptoms of polymyalgia rheumatica have recurred. 3. Hypertension. Continue the patient's metoprolol succinate. The patient was normotensive throughout his hospitalization. DISPOSITION: Home. CONDITION: Stable. TIME SPENT: Approximately 60 minutes was spent on the discharge of this patient , 30 of which was spent [id number] with the patient obtaining history and physical and discussing treatment plan. IRVIN NAVARRO [id number]/[id number] #: [id number] [facility]
== END 2019-09-10 18:15 | disposition home or self-care (01) | DRG 872 ==
LOC: SSU 13:51
PROVIDERS: ADMIT Internal Medicine; ATTEND Internal Medicine
DX: A40.0 Sepsis due to streptococcus, group A (principal); L03.115 Cellulitis of right lower limb; M60.003 Infective myositis, unspecified right leg; M72.9 Fibroblastic disorder, unspecified; B95.0 Streptococcus, group A, as the cause of diseases classified elsewhere; M35.3 Polymyalgia rheumatica; I10 Essential (primary) hypertension; M48.00 Spinal stenosis, site unspecified; Z96.653 Presence of artificial knee joint, bilateral; Z79.899 Other long term (current) drug therapy; Z28.21 Immunization not carried out because of patient refusal; Z85.46 Personal history of malignant neoplasm of prostate; Z90.79 Acquired absence of other genital organ(s)
CPT/HCPCS: 36415; 80048; 80202; 82550; 82565; 83605; 83735; 84520; 85025; 85652; 86140; 87040; 87070; 87073; 87077; 87205; 87640; 87641; A9270-GY; J0696; J1644; J2543; J3370; J3475

== ENCOUNTER 2023-09-19 08:54 | Observation (INO) ==
[2023-09-20 06:15] LABS: ABS Basophils 0.1 10^3/uL (0.0-0.1); ABS Lymphocytes 1.4 10^3/uL (1.0-4.8); ABS Monocytes 0.4 10^3/uL (0.0-1.1); Eosinophil % 0.5 %; Hematocrit 37.6 % (38-53); Hemoglobin 12.9 g/dL (13.2-16.3); Mean Corpuscular Hemoglobin 34.1 pg (27-33); Mean Corpuscular Hgb Conc 34.4 g/dL (31-36); Mean Corpuscular Volume 99.1 fL (80-97); Mean Platelet Volume 8.1 fL (7.5-11.2); Platelet Count 226 10^3/uL (150-450); Red Blood Count 3.79 10^6/uL (4.06-5.63); Red Cell Distribution Width 13.1 % (12-17); White Blood Count 5.9 10^3/uL (3.6-10.2)
[2023-09-20 06:46] LABS: Albumin 3.4 g/dL (3.2-5.2); Albumin/Globulin Ratio 1.5 (1-3); Calcium 8.2 mg/dL (8.6-10.3); Creatinine, Serum 0.72 mg/dL (0.67-1.17); Globulin 2.3 g/dL (2-4); Total Bilirubin 0.6 mg/dL (0.2-1.0); Total Protein 5.7 g/dL (6.4-8.9); eGFR CKD-EPI 90.7 (>60)
[2023-09-20] MEDS: PREVAGEN 20 MG PO SCH (10:01)
[2023-09-21 09:54] VITALS: BP 137/80
[2023-09-21 10:06] LABS: Calcium 8.3 mg/dL (8.6-10.3); Creatinine, Serum 0.86 mg/dL (0.67-1.17); Magnesium 1.9 mg/dL (1.9-2.7); Potassium 3.5 mmol/L (3.5-5.0); eGFR CKD-EPI 85.9 (>60)
== END 2023-09-21 13:15 | disposition home or self-care (01) ==
LOC: MEDTELE 08:54 → INTOOBSV 08:54
PROVIDERS: ADMIT Specialist; ATTEND Specialist

== ENCOUNTER 2024-02-26 11:34 | Observation (INO) ==
[2024-02-26] MEDS ORDERED: Ondansetron 4 mg VIAL 2 MG/ML 2 ml VIAL IV PRN ×2 (11:40→21:10)
[2024-02-26] MEDS ORDERED: Naloxone 0.4 mg VIAL 0.4 mg/ml 1 ml VIAL IV PRN (11:40)
[2024-02-26] MEDS ORDERED: fentaNYL 100 mcg/2 ml 50 MCG/ML VIAL IV PRN (11:40)
[2024-02-26] MEDS ORDERED: Morphine 2 MG/ML SYRINGE IV PRN (21:08)
[2024-02-26] MEDS ORDERED: Senna TAB 8.6 mg TAB PO PRN (21:10)
[2024-02-26] MEDS ORDERED: Polyethylene Glycol 3350 17 GM PACKET PO PRN (21:10)
[2024-02-26] MEDS ORDERED: Magnesium Hydroxide LIQ 30 ML UDC PO PRN (21:42)
[2024-02-26] MEDS: cefTRIAXone 1 gm/50 mL D5W 1 GM/50 ML BAG IV SCH (22:29)
[2024-02-27 05:38] LABS: ABS Lymphocytes 0.5 10^3/uL (1.0-4.8); ABS Monocytes 0.6 10^3/uL (0.0-1.1); ABS Neutrophils 8.1 10^3/uL (1.5-7.6); Eosinophil % 0.1 %; Hematocrit 34.7 % (38-53); Hemoglobin 12.1 g/dL (13.2-16.3); Lymphocyte % 5.4 %; Mean Corpuscular Hemoglobin 34.9 pg (27-33); Mean Corpuscular Hgb Conc 34.8 g/dL (31-36); Mean Corpuscular Volume 100.3 fL (80-97); Mean Platelet Volume 8.4 fL (7.5-11.2); Platelet Count 156 10^3/uL (150-450); Red Blood Count 3.46 10^6/uL (4.06-5.63); White Blood Count 9.3 10^3/uL (3.6-10.2)
[2024-02-27 05:48] LABS: Calcium 7.7 mg/dL (8.6-10.3); Creatinine, Serum 0.57 mg/dL (0.67-1.17); Potassium 3.6 mmol/L (3.5-5.0); eGFR CKD-EPI 96.7 (>60)
[2024-02-27] MEDS ORDERED: Lactated Ringers 1000 ml BAG 1,000 ML IV SCH (06:00)
[2024-02-27] MEDS ORDERED: Buffered Lidocaine 1% SYRIN 1 ml INTRADERM ONE (06:00)
[2024-02-27] MEDS: Lactated Ringers 1000 ml BAG 1,000 ML IV SCH (06:05)
[2024-02-27] MEDS ORDERED: fentaNYL 100 mcg/2 ml 50 MCG/ML VIAL ONE (07:58)
[2024-02-27] MEDS ORDERED: Lidocaine 2% PF 5 ML VIAL ONE ×2 (08:03→09:59)
[2024-02-27] MEDS ORDERED: Propofol 10 MG/ML 20 ML BTL ONE (08:03)
[2024-02-27] MEDS ORDERED: Iohexol 180 (CONTRAST) 10 ML SDV IV ONE (08:59)
[2024-02-27] MEDS ORDERED: Dexamethasone IV 4 MG/ML VIAL 1 ml VIAL ONE (10:14)
[2024-02-27] MEDS ORDERED: Ondansetron 4 mg VIAL 2 MG/ML 2 ml VIAL ONE (10:14)
[2024-02-27 11:56] VITALS: BP 165/88
== END 2024-02-27 12:15 | disposition home or self-care (01) ==
LOC: SSU
PROVIDERS: ADMIT Hospitalist; ATTEND Hospitalist